=== PATIENT | female | born 1970 | race African-American/Black ===

== ENCOUNTER 2016-10-14 01:00 | Emergency (ER) | payer MEDICARE ==
[~2016-10-14] VITALS: Ht 149.9 cm; Wt 117.9 kg
[2016-10-14 01:30] VITALS: BP 190/92
[2016-10-14] MEDS ORDERED: CLOT15CR3 TP (02:28)
--- NOTE | 2016-10-14 02:28 | PHYS DOC ---
Past Medical History Past Medical History: Anemia, Bipolar, Depression, Hypertension, Schizophrenia Alcohol Use: Occasionally Drug Use: None Adult General Chief Complaint Chief Complaint: SKIN PROBLEM HPI HPI Patient is a 45 year old female who presents to the ER complaining of pain underneath both her breasts. Patient reports she's noticed a seeping discharge as well as a redness and rash underneath her breasts. Patient reports that she recently stopped wearing her bra because of myeloma was irritating her breasts. Patient denies any recent fevers shakes chills nausea vomiting diarrhea chest pain shortness of breath cough cold runny nose. Patient has a history of diabetes liver longer kidney problems. Her exam is consistent with a yeast dermatosis type rash underneath both breasts with some wild seeping and drainage noted. It is tender to palpation. A/P yeast dermatitis. Patient's clinically and hemodynamically stable. Patient was given a prescription for Lotrimin antifungal cream and will be discharged home in stable condition. Review of Systems Review of Systems Constitutional: Denies fever or chills [] Eyes: Denies change in visual acuity, redness, or eye pain [] HENT: Denies nasal congestion or sore throat [] Respiratory: Denies cough or shortness of breath [] Cardiovascular: No additional information not addressed in HPI [] GI: Denies abdominal pain, nausea, vomiting, bloody stools or diarrhea [] : Denies dysuria or hematuria [] Musculoskeletal: Denies back pain or joint pain [] Integument: Denies rash or skin lesions [] Neurologic: Denies headache, focal weakness or sensory changes [] Endocrine: Denies polyuria or polydipsia [] Physical Exam Physical Exam Constitutional: Well developed, well nourished, no acute distress, non-toxic appearance. [] HENT: Normocephalic, atraumatic, bilateral external ears normal, oropharynx moist, no oral exudates, nose normal. [] Eyes: PERRLA, EOMI, conjunctiva normal, no discharge. [] Neck: Normal range of motion, no tenderness, supple, no stridor. [] Cardiovascular:Heart rate regular rhythm, Lungs & Thorax: Bilateral breath sounds clear to auscultation [] Abdomen: Bowel sounds normal, soft, no tenderness, no masses, no pulsatile masses. [] Skin: Warm, dry, no erythema, no rash. [] Back: No tenderness, no CVA tenderness. [] Extremities: No tenderness, no cyanosis, no clubbing, ROM intact, no edema. [] Neurologic: Alert and oriented X 3, normal motor function, normal sensory function, no focal deficits noted. [] Psychologic: Affect normal, judgement normal, mood normal. [] Current Patient Data Vital Signs Vital Signs Date Time Temp Pulse Resp B/P Pulse Ox O2 Delivery O2 Flow Rate FiO2 10/14/16 01:30 82 190/92 96 Room Air 10/14/16 01:12 98.1 18 98.1 EKG EKG [] Radiology/Procedures Radiology/Procedures [] Course & Med Decision Making Course & Med Decision Making Pertinent Labs and Imaging studies reviewed. (See chart for details) [] Dragon Disclaimer Dragon Disclaimer This electronic medical record was generated, in whole or in part, using a voice recognition dictation system. Departure Departure Impression: Primary Impression: Yeast dermatitis Disposition: HOME, SELF-CARE Condition: STABLE Referrals: NO PCP (PCP) Patient Instructions: Yeast Infection of the Skin, [id number] Scripts Clotrimazole/Betamethasone Dip (Lotrisone Cream)15 Gm Cream..g.1 Drew TP BID #[id number] GM Prov:DION HARRINGTON MD 10/14/16 DION HARRINGTON MD Oct 14, 2016 02:28
== END 2016-10-14 02:50 | disposition home or self-care (01) ==
LOC: ER 01:00
DX: B37.2 Candidiasis of skin and nail (principal); F32.9 Major depressive disorder, single episode, unspecified; I10 Essential (primary) hypertension; F20.9 Schizophrenia, unspecified; C90.00 Multiple myeloma not having achieved remission
CPT/HCPCS: 99283

== ENCOUNTER 2016-10-19 00:14 | Emergency (ER) | payer MEDICARE ==
[~2016-10-19] VITALS: Ht 149.9 cm; Wt 136.1 kg
[~2016-10-19 00:14] MED LIST: CLOT15CR3 TP
--- NOTE | 2016-10-19 01:20 | ACF ---
Admission Forms Criteria PSYCHIATRIC DISORDERS Clinical Indications for Inpatient Care (Place 'X' for any and all applicable criteria): Ongoing inpatient care may be needed for ANY ONE of the following(1)(2)(3)(4)(6) (7)(8): [ ]I. Danger to self or others not manageable at lower level of care. [ ]II. Grave disability (eg, inability to perform self care necessary at lower level of care) [ ]III. Agitation or inappropriate behavior interfering with care for primary condition (eg, attempting to discontinue lines or drains prematurely, unable to cooperate with respiratory care) [X]IV. Severe disability or disorder indicated by ALL of the following: [X]a) Severe behavioral health disorder-related symptoms or condition indicated by ANY ONE of the following: [ ]i) Severe problem with cognition, memory, judgment, or impulse control [X]ii) Severe clinical manifestations (eg, hallucinations, delusions, other acute psychotic symptoms, naila, extreme agitation or anxiety) [X]b) Patient management at lower level of care is not feasible until acute intervention or modification is initiated. Extended stay beyond goal length of stay for the primary condition may be indicated when ANY ONE of the following is present: (1)(2)(3)(4): [ ]a) Patient is a danger to self or others and not manageable at lower level of care. [ ]b) Behavior crisis management, including physical or chemical restraints, is required and is not available at a lower level of care. [ ]c) Behavioral symptoms (e.g., agitation, somnolence, inappropriate behavior) are present, and are not manageable at a lower level of care. [ ]d) Patient cannot understand follow-up treatment and crisis plan. [ ]e) Provider and supports are not sufficiently available at lower level of care. [ ]f) Patient cannot participate (e.g., verify absence of plan for harm) and is in needed of monitoring. The original [facility] [email or web address] content created by [facility] [employer] has been revised. The portions of the content which have been revised are identified through the use of italic text or in bold, and [facility] has neither reviewed nor approved the modified material. All other unmodified content is copyright [facility]. Please see references footnoted in the original [facility] 2016 Admission Criteria Met?: Yes ES HERRERA Oct 19, 2016 01:19
[2016-10-19 01:38] LABS: BASO # 0.1 x10^3/uL (0.0-0.2); BASO % 1 % (0-3); EOS % 3 % (0-3); HEMATOCRIT 23.5 % (36.0-47.0); LYMPH # 1.7 x10^3/uL (1.0-4.8); LYMPH % 17 % (24-48); MEAN CORPUSCULAR HEMOGLOBIN 16 pg (25-35); MEAN CORPUSCULAR HGB CONC 28 g/dL (31-37); MEAN CORPUSCULAR VOLUME 56 fL (79-100); MONO % 6 % (0-9); NEUT % 73 % (31-73); PLATELET COUNT 255 x10^3/uL (140-400); RED BLOOD COUNT 4.23 x10^6/uL (3.50-5.40)
[2016-10-19] MEDS ORDERED: IPRATRPIUM/ALBUTEROL 0.5/2.5MG 3 ML NEBU. NEB ONE (02:00)
[2016-10-19 02:14] LABS: HEMOGLOBIN 6.6 g/dL (12.0-15.5)
[2016-10-19 02:23] LABS: CREATININE 0.8 mg/dL (0.6-1.0); GFR 94.3
[2016-10-19 02:23] LABS: BILIRUBIN,URINE NEGATIVE (NEG); GLUCOSE,URINE NEGATIVE (NEG); NITRITE,URINE NEGATIVE (NEG); PROTEIN,URINE 100 mg/dL (NEG-TRACE)
[2016-10-19 02:28] LABS: BARBITURATES NEG (NEG); BENZODIAZEPINES NEG (NEG); CANNABINOIDS NEG (NEG); COCAINE NEG (NEG); METHADONE NEG (NEG); OPIATES NEG (NEG); PHENCYCLIDINE NEG (NEG)
[2016-10-19 02:32] LABS: ETHANOL, URINE NEG (NEG)
[2016-10-19 02:44] LABS: BACTERIA,URINE 0 /HPF (0-FEW); RBC,URINE OCC /HPF (0-2)
[2016-10-19 02:45] LABS: SQUAMOUS EPITHELIAL CELL,UR FEW /LPF
--- NOTE | 2016-10-19 02:53 | PHYS DOC ---
Past Medical History Past Medical History: Anemia, Bipolar, Depression, Hypertension, Schizophrenia Alcohol Use: Occasionally Drug Use: None Adult General Chief Complaint Chief Complaint: PSYCH EVALUATION HPI HPI Patient is a 45 year old female who presents to the emergency department with multiple complaints. Patient's primary complaint is hearing voices. Patient states she has history of schizophrenia and has not been on her medications for the past 2 months. The patient states that she is currently living at a motel states that she does not feel that she can take care of herself any longer in her current state. Patient also admits to history of anemia, hypertension, depression, and bipolar disorder. Patient notes that she has had mild shortness of breath with ambulation. Patient states that she is not having any symptoms while at rest. The patient denies any suicidal or homicidal ideation. Patient is not in any pain currently. The patient is requesting help and a psychiatric evaluation as she again states that she is unable to take care of herself in her current state. Review of Systems Review of Systems Constitutional: Denies fever or chills [] Eyes: Denies change in visual acuity, redness, or eye pain [] HENT: Denies nasal congestion or sore throat [] Respiratory: Shortness of breath with exertion [] Cardiovascular: Edema, denies chest pain [] GI: Denies abdominal pain, nausea, vomiting, bloody stools or diarrhea [] : Denies dysuria or hematuria [] Musculoskeletal: Denies back pain or joint pain [] Integument: Denies rash or skin lesions [] Neurologic: Denies headache, focal weakness or sensory changes [] Current Medications Current Medications Current Medications Medications (Trade) Dose Ordered Sig/Mary Start Time Stop Time Status Last Admin Dose Admin Albuterol/ Ipratropium (Duoneb) 3 ml 1X ONCE 10/19/16 02:00 10/19/16 02:01 DC 10/19/16 01:53 3 ML Hydralazine HCl (Apresoline) 10 mg 1X ONCE 10/19/16 03:30 10/19/16 03:31 DC 10/19/16 03:32 10 MG Ibuprofen (Motrin) 600 mg STK-MED ONCE 10/19/16 04:33 10/19/16 04:34 DC Losartan Potassium (Cozaar) 50 mg 1X ONCE 10/19/16 03:30 10/19/16 03:31 DC 10/19/16 03:29 50 MG Potassium Chloride (Klor-Con) 40 meq 1X ONCE 10/19/16 03:30 10/19/16 03:31 DC 10/19/16 03:28 40 MEQ Allergies Allergies Allergies Coded Allergies Type Severity Reaction Last Updated Verified No Known Drug Allergies 10/19/16 No Physical Exam Physical Exam Constitutional: Alert, afebrile, morbidly obese, no acute distress. [] HENT: Normocephalic, atraumatic, bilateral external ears normal, oropharynx moist, no oral exudates, nose normal. [] Eyes: PERRLA, EOMI, conjunctiva normal, no discharge. [] Neck: Normal range of motion, no tenderness, supple, no stridor. [] Cardiovascular:Heart rate regular rhythm, no murmur [] Lungs & Thorax: Nonobstructive air movement bilaterally, mild expiratory wheezes , no rales [] Abdomen: Bowel sounds normal, soft, no tenderness, no masses, no pulsatile masses. [] Skin: Warm, dry, no erythema, no rash. [] Back: No tenderness, no CVA tenderness. [] Extremities: No tenderness, no cyanosis, no clubbing, ROM intact, 1+ pitting edema in the bilateral lower extremities. [] Neurologic: Alert and oriented X 3, normal motor function, normal sensory function, no focal deficits noted. [] Current Patient Data Vital Signs Vital Signs Date Time Temp Pulse Resp B/P Pulse Ox O2 Delivery O2 Flow Rate FiO2 10/19/16 04:57 98.5 80 22 179/88 98.5 10/19/16 03:44 98 Room Air Lab Values Laboratory Tests Test 10/19/16 01:30 10/19/16 01:34 White Blood Count 10.0x10^3/uL (4.0-11.0) Red Blood Count 4.23x10^6/uL (3.50-5.40) Hemoglobin 6.6g/dL (12.0-15.5) *L Hematocrit 23.5% (36.0-47.0) L Mean Corpuscular Volume 56fL (79-100) L Mean Corpuscular Hemoglobin 16pg (25-35) L Mean Corpuscular Hemoglobin Concent 28g/dL (31-37) L Red Cell Distribution Width 21.0% (11.5-14.5) H Platelet Count 255x10^3/uL (140-400) Neutrophils (%) (Auto) 73% (31-73) Lymphocytes (%) (Auto) 17% (24-48) L Monocytes (%) (Auto) 6% (0-9) Eosinophils (%) (Auto) 3% (0-3) Basophils (%) (Auto) 1% (0-3) Neutrophils # (Auto) 7.3x10^3uL (1.8-7.7) Lymphocytes # (Auto) 1.7x10^3/uL (1.0-4.8) Monocytes # (Auto) 0.6x10^3/uL (0.0-1.1) Eosinophils # (Auto) 0.3x10^3/uL (0.0-0.7) Basophils # (Auto) 0.1x10^3/uL (0.0-0.2) Platelet Estimate Pending Sodium Level 145mmol/L (136-145) Potassium Level 3.0mmol/L (3.5-5.1) L Chloride Level 109mmol/L (98-107) H Carbon Dioxide Level 29mmol/L (21-32) Anion Gap 7 (6-14) Blood Urea Nitrogen 4mg/dL (7-20) L Creatinine 0.8mg/dL (0.6-1.0) Estimated GFR (Cockcroft-Gault) 94.3 Glucose Level 101mg/dL (70-99) H Calcium Level 8.0mg/dL (8.5-10.1) L Urine Collection Type Unknown Urine Color Yellow Urine Clarity Clear Urine pH 6.0 Urine Specific [place] 1.025 Urine Protein 100mg/dL (NEG-TRACE) Urine Glucose (UA) Negativemg/dL (NEG) Urine Ketones (Stick) Negativemg/dL (NEG) Urine Blood Negative (NEG) Urine Nitrite Negative (NEG) Urine Bilirubin Negative (NEG) Urine Urobilinogen Dipstick 1.0mg/dL (0.2 mg/dL) Urine Leukocyte Esterase Negative (NEG) Urine RBC Occ/HPF (0-2) Urine WBC 1-4/HPF (0-4) Urine Squamous Epithelial Cells Few/LPF Urine Bacteria 0/HPF (0-FEW) Urine Hyaline Casts Moderate/HPF Urine Mucus Mod/LPF Urine Opiates Screen Neg (NEG) Urine Methadone Screen Neg (NEG) Urine Barbiturates Neg (NEG) Urine Phencyclidine Screen Neg (NEG) Urine Amphetamine/Methamphetamine Neg (NEG) Urine Benzodiazepines Screen Neg (NEG) Urine Cocaine Screen Neg (NEG) Urine Cannabinoids Screen Neg (NEG) Urine Ethyl Alcohol Neg (NEG) Laboratory Tests 10/19/16 01:30 Laboratory Tests 10/19/16 01:30 EKG EKG Rhythm strip interpretation: Heart rate 74, sinus rhythm, normal intervals, no ectopy [] Radiology/Procedures Radiology/Procedures Not performed [] Course & Med Decision Making Course & Med Decision Making Pertinent Labs and Imaging studies reviewed. (See chart for details) Patient's hemoglobin was found to be 6.6. Patient appears to have a baseline hemoglobin above 7. This may be contributing to the patient's shortness of breath symptoms. Patient was also treated with albuterol which helped with the patient's wheezing. Patient given oral potassium for replacement as her potassium levels were 3.0. Patient also found to have elevated blood pressure that was treated with a combination of hydralazine and losartan as patient is currently not on any medications and had previously been on Benicar. The patient is otherwise in no acute distress at this time and is medically stable pending reinitiation of outpatient medications. The patient was evaluated by Kirstin of PAT team. After speaking with the patient she was able to contact and get confirmation that patient could be sent to [facility] for further evaluation. The patient was transfused 1 unit of packed red blood cells prior to discharge. Dragon Disclaimer Dragon Disclaimer This electronic medical record was generated, in whole or in part, using a voice recognition dictation system. Departure Departure Impression: Primary Impression: Schizophrenia Additional Impressions: Iron deficiency anemia Hypokalemia Asthma Essential hypertension Disposition: 65 XFER TO PSYCH HOSP/UNIT Condition: STABLE Referrals: NO PCP (PCP) Patient Instructions: Asthma, Adult, Hypertension, Hypokalemia, Iron Deficiency Anemia, Schizophrenia Additional Instructions: You will be transferred to [facility] for further psychiatric evaluation and treatment upon discharge from the emergency department. Return to the emergency department for any worsening symptoms. Scripts Losartan Potassium 50 Mg [id number] Mg PO DAILY #30 TAB Prov:ROD NASH MD 10/19/16 Albuterol Sulfate (Proair Hfa Inhaler)8.5 Gm Hfa.aer.ad2 Puff INH Q4-6HRS PRN SHORTNESS OF BREATH #1 INHALER Ref 0 Prov:ROD NASH MD 10/19/16 Problem Qualifiers Primary Impression: Schizophrenia Schizophrenia type: unspecified Qualified Code: F20.9 - Schizophrenia, unspecified Additional Impressions: Iron deficiency anemia Iron deficiency anemia type: unspecified iron deficiency Qualified Code: D50.9 - Iron deficiency anemia, unspecified Asthma Asthma severity: mild persistent Asthma complication type: uncomplicated Qualified Code: J45.30 - Mild persistent asthma, uncomplicated ROD NASH MD Oct 19, 2016 02:53
[2016-10-19] MEDS ORDERED: POTASSIUM CHLORIDE 20 MEQ TABLET.ER. PO ONE (03:30)
[2016-10-19] MEDS ORDERED: hydrALAZINE 20 MG/ML VIAL. IVP ONE (03:30)
[2016-10-19] MEDS ORDERED: LOSARTAN POTASSIUM 50 MG TABLET. PO ONE (03:30)
[2016-10-19] MEDS ORDERED: PROAIR HFA8.5 GM INH (04:28)
[2016-10-19] MEDS ORDERED: LOSA50TA6 PO (04:28)
[2016-10-19] MEDS ORDERED: IBUPROFEN 600 MG TABLET. PO ONE ×2 (04:33→05:00)
[2016-10-19 04:41] VITALS: BP 179/90
[2016-10-19 04:57] VITALS: BP 179/88
[2016-10-19 05:50] VITALS: BP 184/106
[2016-10-19 06:11] VITALS: BP 186/108
[2016-10-19 07:33] LABS: PLT ESTIMATE ADEQUATE (ADEQUATE)
[2016-10-19 07:34] LABS: ANISOCYTOSIS PRESENT; HYPOCHROMIA PRESENT; MICROCYTOSIS PRESENT
== END 2016-10-19 06:33 ==
LOC: ER 00:14
DX: F20.9 Schizophrenia, unspecified (principal); J45.30 Mild persistent asthma, uncomplicated; D50.9 Iron deficiency anemia, unspecified; E87.6 Hypokalemia; I10 Essential (primary) hypertension; F31.9 Bipolar disorder, unspecified
CPT/HCPCS: 36415; 80048; 80305; 81001; 85007; 85027; 86850; 86900; 86901; 86920; 94250; 94640; 96374; 99285; J0360; J7620; P9016; G0481

== ENCOUNTER 2016-10-22 09:57 | Inpatient (IN) | payer MEDICARE ==
[~2016-10-22] VITALS: Ht 149.9 cm; Wt 140.4 kg
[~2016-10-22 09:57] MED LIST changes: +LOSA50TA6 PO; +PROAIR HFA8.5 GM INH
--- NOTE | 2016-10-22 10:37 | PHYS DOC ---
Past Medical History Past Medical History: Anemia, Bipolar, Depression, Hypertension, Schizophrenia Past Surgical History: Alcohol Use: Occasionally Drug Use: None Adult General Chief Complaint Chief Complaint: MULTIPLE COMPLAINTS HPI HPI Patient is a 45 year old female presents emergency department for the third time in the last 2 weeks. Patient states that she has had shortness of air difficulty breathing. She was seen here approximately on October 19 for shortness of air and was provided with an inhaler in which she states she was unable to fill. She also states that she has a yeast infection and headache bilateral breast in which she was also unable to get the prescription filled in which she was seen on October 14. Patient also states that she has had abdominal pain and discomfort with distended abdomen. She states her last normal bowel movement was today. She denies any nausea or vomiting. Patient denies any urinary frequency urgency or pain with urination. Patient states that she lives in a motel and is unable to obtain her medications. She states that her mother has all of her money and has not provided her with the money to be able to get her prescriptions filled. Review of Systems Review of Systems Constitutional: Denies fever or chills [] Eyes: Denies change in visual acuity, redness, or eye pain [] HENT: Denies nasal congestion or sore throat [] Respiratory: Denies cough C/o shortness of breath [] Cardiovascular: No additional information not addressed in HPI [] GI: abdominal pain, denies nausea, vomiting, bloody stools or diarrhea [] : Denies dysuria or hematuria [] Musculoskeletal: Denies back pain or joint pain [] Integument: rash under bilateral breast denies skin lesions [] Neurologic: Denies headache, focal weakness or sensory changes [] Endocrine: Denies polyuria or polydipsia [] Current Medications Current Medications Current Medications Medications (Trade) Dose Ordered Sig/Mary Start Time Stop Time Status Last Admin Dose Admin Albuterol Sulfate (Ventolin Neb Soln) 2.5 mg 1X ONCE 10/22/16 10:45 10/22/16 10:46 DC 10/22/16 10:50 2.5 MG Clonidine HCl (Catapres) 0.2 mg 1X ONCE 10/22/16 10:45 10/22/16 10:46 DC 10/22/16 10:55 0.2 MG Allergies Allergies Allergies Coded Allergies Type Severity Reaction Last Updated Verified No Known Drug Allergies 10/19/16 No Physical Exam Physical Exam Constitutional: Well developed, well nourished, no acute distress, non-toxic appearance. [] HENT: Normocephalic, atraumatic, bilateral external ears normal, oropharynx moist, no oral exudates, nose normal. [] Eyes: PERRLA, EOMI, conjunctiva normal, no discharge. [] Neck: Normal range of motion, no tenderness, supple, no stridor. [] Cardiovascular:Heart rate regular rhythm, no murmur [] Lungs & Thorax: Bilateral breath sounds clear to auscultation with patient unable to take a deep breath. Abdomen: Bowel sounds hypoactive, soft, right upper quadrant and left lower abdominal tenderness, no masses, no pulsatile masses. Patients abdomen is round and distended. Skin: Warm, dry, no erythema, no rash. Patient with yeast type rash with drainage noted under bilateral breasts. It was noted to have a foul odor from the areas. Back: No tenderness Extremities: No tenderness, no cyanosis, no clubbing, ROM intact, no edema. [] Neurologic: Alert and oriented X 3, normal motor function, normal sensory function, no focal deficits noted. [] Psychologic: Affect normal, judgement normal, mood normal. [] Current Patient Data Vital Signs Vital Signs Date Time Temp Pulse Resp B/P Pulse Ox O2 Delivery O2 Flow Rate FiO2 10/22/16 12:30 87 188/91 10/22/16 12:00 26 94 Nasal Cannula 2 10/22/16 10:03 97.9 97.9 Lab Values Laboratory Tests Test 10/22/16 10:40 10/22/16 11:55 White Blood Count 12.2x10^3/uL (4.0-11.0) H Red Blood Count 4.58x10^6/uL (3.50-5.40) Hemoglobin 8.0g/dL (12.0-15.5) L Hematocrit 26.1% (36.0-47.0) L Mean Corpuscular Volume 57fL (79-100) L Mean Corpuscular Hemoglobin 17pg (25-35) L Mean Corpuscular Hemoglobin Concent 31g/dL (31-37) Red Cell Distribution Width 22.9% (11.5-14.5) H Platelet Count 259x10^3/uL (140-400) Neutrophils (%) (Auto) 81% (31-73) H Lymphocytes (%) (Auto) 11% (24-48) L Monocytes (%) (Auto) 5% (0-9) Eosinophils (%) (Auto) 2% (0-3) Basophils (%) (Auto) 1% (0-3) Neutrophils # (Auto) 9.9x10^3uL (1.8-7.7) H Lymphocytes # (Auto) 1.3x10^3/uL (1.0-4.8) Monocytes # (Auto) 0.6x10^3/uL (0.0-1.1) Eosinophils # (Auto) 0.2x10^3/uL (0.0-0.7) Basophils # (Auto) 0.1x10^3/uL (0.0-0.2) Sodium Level 144mmol/L (136-145) Potassium Level 3.0mmol/L (3.5-5.1) L Chloride Level 107mmol/L (98-107) Carbon Dioxide Level 28mmol/L (21-32) Anion Gap 9 (6-14) Blood Urea Nitrogen 6mg/dL (7-20) L Creatinine 0.9mg/dL (0.6-1.0) Estimated GFR (Cockcroft-Gault) 82.3 BUN/Creatinine Ratio 7 (6-20) Glucose Level 119mg/dL (70-99) H Calcium Level 7.9mg/dL (8.5-10.1) L Total Bilirubin 1.1mg/dL (0.2-1.0) H Aspartate Amino Transferase (AST) 47U/L (15-37) H Alanine Aminotransferase (ALT) 32U/L (14-59) Alkaline Phosphatase 155U/L (46-116) H GU-Nqz-T-Type Natriuretic Peptide 1619pg/mL (0-124) H Total Protein 7.2g/dL (6.4-8.2) Albumin 2.8g/dL (3.4-5.0) L Albumin/Globulin Ratio 0.6 (1.0-1.7) L Amylase Level 68U/L (25-115) Lipase 126U/L (73-393) Urine Collection Type U cath Urine Color Yellow Urine Clarity Clear Urine pH 6.5 Urine Specific [place] 1.015 Urine Protein >=300mg/dL (NEG-TRACE) Urine Glucose (UA) Negativemg/dL (NEG) Urine Ketones (Stick) Negativemg/dL (NEG) Urine Blood Trace (NEG) Urine Nitrite Negative (NEG) Urine Bilirubin Negative (NEG) Urine Urobilinogen Dipstick 1.0mg/dL (0.2 mg/dL) Urine Leukocyte Esterase Negative (NEG) Urine RBC 0/HPF (0-2) Urine WBC 1-4/HPF (0-4) Urine Transitional Epithelial Cells Occ/LPF Urine Amorphous Sediment Present/HPF Urine Bacteria 0/HPF (0-FEW) Urine Test Negative (NEG) Laboratory Tests 10/22/16 10:40 Laboratory Tests 10/22/16 10:40 EKG EKG EKG completed with a heart rate of 91 sinus rhythm noted no STEMI noted per Dr. Quick. [] Radiology/Procedures Radiology/Procedures [] Course & Med Decision Making Course & Med Decision Making Pertinent Labs and Imaging studies reviewed. (See chart for details) Patient O2 sat was in the upper 80s upon arrival. She was placed on oxygen which brought her oxygenation level up into the upper 90s. Patient was provided with an albuterol treatment which seemed to have helped providing her with O2 sat of 100% with oxygen. Patient CT scan was negative for any abnormalities chest x-ray shows infiltrate versus pleural effusion. Patient will be admitted into the hospitalist spoke with Dr. Joseph in regards to admission. Patient will be provided with potassium supplement here in the emergency department. [] Dragon Disclaimer Dragon Disclaimer This electronic medical record was generated, in whole or in part, using a voice recognition dictation system. Departure Departure Impression: Primary Impression: Hypokalemia Additional Impressions: Essential hypertension Abdominal pain Dyspnea Marce infection Disposition: 09 ADMITTED INPATIENT Admitting Physician: Joshua Joseph Referrals: SHAHANA ARINEY MD (PCP) Problem Qualifiers LUIS RICHEY DIRECTOR OF CORPORATE RESPONSIBILITY Oct 22, 2016 10:37
[2016-10-22] MEDS ORDERED: CLONIDINE HCL 0.1 MG TABLET PO ONE (10:45)
[2016-10-22] MEDS ORDERED: ALBUTEROL SULFATE 2.5 MG/3 ML NEBU. NEB ONE (10:45)
[2016-10-22 11:02] LABS: BASO # 0.1 x10^3/uL (0.0-0.2); BASO % 1 % (0-3); EOS % 2 % (0-3); HEMATOCRIT 26.1 % (36.0-47.0); LYMPH # 1.3 x10^3/uL (1.0-4.8); LYMPH % 11 % (24-48); MEAN CORPUSCULAR HEMOGLOBIN 17 pg (25-35); MEAN CORPUSCULAR HGB CONC 31 g/dL (31-37); MEAN CORPUSCULAR VOLUME 57 fL (79-100); MONO % 5 % (0-9); NEUT % 81 % (31-73); PLATELET COUNT 259 x10^3/uL (140-400); RED BLOOD COUNT 4.58 x10^6/uL (3.50-5.40); RED CELL DISTRIBUTION WIDTH 22.9 % (11.5-14.5); WHITE BLOOD COUNT 12.2 x10^3/uL (4.0-11.0)
--- NOTE | 2016-10-22 11:12 | RAD ---
Portable chest, 10/22/2016: History: Shortness of breath Comparison is made to a study from 01/17/2015. The heart is enlarged. The pulmonary vascularity appears to be congested. The lung bases are underpenetrated due to the patient's size. There is a density in the right lateral costophrenic angle suggesting the presence of pleural fluid. IMPRESSION: 1. Cardiomegaly with vascular congestion. 2. Possible small right pleural effusion. Follow-up PA and lateral chest radiographs are suggested for further evaluation.
[2016-10-22 11:14] LABS: ALBUMIN 2.8 g/dL (3.4-5.0); ALBUMIN/GLOBULIN RATIO 0.6 (1.0-1.7); CALCIUM 7.9 mg/dL (8.5-10.1); CREATININE 0.9 mg/dL (0.6-1.0); GFR 82.3; TOTAL BILIRUBIN 1.1 mg/dL (0.2-1.0); TOTAL PROTEIN 7.2 g/dL (6.4-8.2)
[2016-10-22 12:11] LABS: BILIRUBIN,URINE NEGATIVE (NEG); GLUCOSE,URINE NEGATIVE (NEG); NITRITE,URINE NEGATIVE (NEG); PH,URINE 6.5; PROTEIN,URINE >=300 mg/dL (NEG-TRACE)
[2016-10-22 12:15] LABS: NEG OBC UR NEG; POS OBC UR POS
[2016-10-22 12:18] LABS: RBC,URINE 0 /HPF (0-2)
[2016-10-22 12:19] LABS: BACTERIA,URINE 0 /HPF (0-FEW)
--- NOTE | 2016-10-22 13:12 | RAD ---
Indication abdominal pain. Axial images through the abdomen and pelvis were obtained. Study is limited. No IV or gastrointestinal contrast was administered. There is soft tissue swelling of the visualized abdominal wall and visualized portions of both breasts. This may reflect a systemic process such as anasarca. A component of inflammation is not excluded. There is a small right pleural effusion. Some volume loss is seen at the right lung base ventrally. This may reflect atelectasis or scar. A focus of pneumonia is not entirely excluded. The liver and spleen appear unremarkable. The gallbladder is largely contracted but grossly normal. No pancreatic abnormality is seen. There are no adrenal or renal anomalies seen. An acute finding in the abdomen is not apparent. A mass inflammatory process or acute finding in the abdomen is not seen. In the pelvis no focal mass or inflammatory process is seen. IMPRESSION: Diffuse soft tissue swelling. Clinical correlation advised. No focal or acute process seen in the abdomen or pelvis. Small right pleural effusion. Volume loss at the right lung base ventrally may reflect atelectasis or scar. A pneumonic focus is not entirely excluded PQRS Compliance Statement: One or more of the following individualized dose reduction techniques were utilized for this examination: 1. Automated exposure control 2. Adjustment of the mA and/or kV according to patient size 3. Use of iterative reconstruction technique
[2016-10-22] MEDS ORDERED: POTASSIUM CHLORIDE 20 MEQ TABLET.ER. PO ONE ×2 (14:00→17:00)
--- NOTE | 2016-10-22 14:10 | EKG ---
[facility] [address] [place] [address] Test Date: 2016-10-22 Test Time: 10:27:21 Pat Name: BECKI WHEELER Department: Room: Gender: F [employer]: : 1970 Requested By: STAFF NON Order Number: [id number] Reading MD: Mohini Garcia Measurements Intervals [place] Rate: 91 P: 30 FL: 162 QRS: -46 QRSD: 86 T: 78 QT: 392 QTc: 484 Interpretive Statements SINUS RHYTHM NORMAL ECG RI6.01 No previous ECG available for comparison Electronically Signed On 10-26-2016 15:14:15 CDT by Mohini Garcia
[2016-10-22] MEDS ORDERED: ONDANSETRON PF 4 MG/2 ML VIAL. IV PRN ×2 (14:45)
[2016-10-22] MEDS ORDERED: ACETAMINOPHEN 325 MG TABLET. PO PRN ×2 (14:45)
[2016-10-22] MEDS ORDERED: HALOPERIDOL LACTATE 5 MG/ML VIAL. IVP PRN (14:45)
[2016-10-22] MEDS ORDERED: MORPHINE SULFATE 2 MG/ML DISP.SYRIN. IV PRN (14:45)
[2016-10-22] MEDS ORDERED: hydrALAZINE 20 MG/ML VIAL. IVP PRN (14:45)
[2016-10-22] MEDS ORDERED: SULFUR HEXAFLUORIDE MICROSPHR 25 MG VIAL. IVP ONE ×2 (14:47→15:30)
--- NOTE | 2016-10-22 14:57 | PDOC1 ---
History and Physical Date of Admission Date of Admission 10/22/16 Identification/Chief Complaint Chief Complaint sob Problems: Source Source: Chart review, Patient History of Present Illness History of Present Illness HPI HPI Patient is a 45 year old female presents emergency department for dyspnea. Seems she has been here for the third time in the last 2 weeks. pt is a poor historian, she said she has a PCP, and insurance,but wont fu with PCP nor fill her meds, saying she has finacial problem. not taking any meds currently. h/o HTN and bipolar. She has been feeling dyspnea for 2 weeks, especiall exertional with walking, mild cough, no fever, + chills. severe weight gain with bl leg edema. She also has bl breast fungus infection, told ER [employer]ODUCT [employer] REP that cannot get meds, but told me she DOESNOT want topical meds on it. CONstipation and diarrhea for 2 weeks, watery. feels abd tightness, neg ABD CT in ER. Past Medical History Cardiovascular: HTN Past Surgical History Past Surgical History: Family History Family History: No Significant Social History Smoke: <1 pack per day ALCOHOL: social Drugs: None Current Problem List Problem List Problems Medical Problems: (1) Abdominal pain Status: Acute (2) Marce infection Status: Acute (3) Dyspnea Status: Acute (4) Essential hypertension Status: Acute (5) Hypokalemia Status: Acute Current Medications Current Medications Current Medications Medications (Trade) Dose Ordered Sig/Mary Start Time Stop Time Status Last Admin Dose Admin Acetaminophen (Tylenol) 650 mg PRN Q6HRS PRN 10/22/16 14:45 10/22/16 14:45 DC Acetaminophen/ Hydrocodone Bitart (Lortab 5/325) 1 tab PRN Q4HRS PRN 10/22/16 14:45 Albuterol Sulfate (Ventolin Neb Soln) 2.5 mg 1X ONCE 10/22/16 10:45 10/22/16 10:46 DC 10/22/16 10:50 2.5 MG Clonidine HCl (Catapres) 0.2 mg 1X ONCE 10/22/16 10:45 10/22/16 10:46 DC 10/22/16 10:55 0.2 MG Furosemide (Lasix) 40 mg DAILY 10/22/16 15:00 UNV Heparin Sodium (Porcine) 5,000 unit Q8HRS 10/22/16 22:00 Hydralazine HCl (Apresoline) 10 mg PRN Q4HRS PRN 10/22/16 14:45 UNV Losartan Potassium (Cozaar) 100 mg DAILY 10/22/16 15:00 UNV Morphine Sulfate 1 mg PRN Q1HR PRN 10/22/16 14:45 Nystatin (Nystop) 1 kade BID 10/22/16 21:00 UNV Ondansetron HCl (Zofran) 4 mg PRN Q6HRS PRN 10/22/16 14:45 UNV Potassium Chloride (Klor-Con) 40 meq 1X ONCE 10/22/16 14:00 10/22/16 14:02 DC 10/22/16 14:08 40 MEQ Allergies Allergies Allergies Coded Allergies Type Severity Reaction Last Updated Verified No Known Drug Allergies 10/19/16 No ROS Review of System CONSTITUTIONAL: No fever or chills EYES: No recent changes SKIN: No rash or itching CARDIOVASCULAR: No chest pain, syncope, palpitations, or edema RESPIRATORY: No SOB or cough GASTROINTESTINAL: No nausea, vomiting or abdominal pain NEUROLOGICAL: No headaches or weakness ENDOCRINE: No cold or heat intolerance GENITOURINARY: No urgency or frequency of urination MUSCULOSKELETAL: No back pain or joint pain LYMPHATICS: No enlarged lymph nodes PSYCHIATRIC: No anxiety or depression Physical Exam Physical Exam GEN.: No apparent distress. Alert and oriented. HEENT: Head is normocephalic, atraumatic NECK: Supple. LUNGS: bl diminished bs. HEART: RRR, S1, S2 present. Peripheral pulses intact ABDOMEN: Soft, nontender. Positive bowel sounds. mild distended abd, tight. EXTREMITIES: Without any cyanosis. anasarca. NEUROLOGIC: Normal speech, normal tone PSYCHIATRIC: Normal affect, normal mood. SKIN: No ulcerations Vitals Vitals Vital Signs Date Time Temp Pulse Resp B/P Pulse Ox O2 Delivery O2 Flow Rate FiO2 10/22/16 12:30 87 188/91 10/22/16 12:00 26 94 Nasal Cannula 2 10/22/16 10:03 97.9 97.9 Labs Labs Laboratory Tests Test 10/22/16 10:40 10/22/16 11:55 White Blood Count 12.2x10^3/uL (4.0-11.0) Red Blood Count 4.58x10^6/uL (3.50-5.40) Hemoglobin 8.0g/dL (12.0-15.5) Hematocrit 26.1% (36.0-47.0) Mean Corpuscular Volume 57fL (79-100) Mean Corpuscular Hemoglobin 17pg (25-35) Mean Corpuscular Hemoglobin Concent 31g/dL (31-37) Red Cell Distribution Width 22.9% (11.5-14.5) Platelet Count 259x10^3/uL (140-400) Neutrophils (%) (Auto) 81% (31-73) Lymphocytes (%) (Auto) 11% (24-48) Monocytes (%) (Auto) 5% (0-9) Eosinophils (%) (Auto) 2% (0-3) Basophils (%) (Auto) 1% (0-3) Neutrophils # (Auto) 9.9x10^3uL (1.8-7.7) Lymphocytes # (Auto) 1.3x10^3/uL (1.0-4.8) Monocytes # (Auto) 0.6x10^3/uL (0.0-1.1) Eosinophils # (Auto) 0.2x10^3/uL (0.0-0.7) Basophils # (Auto) 0.1x10^3/uL (0.0-0.2) Sodium Level 144mmol/L (136-145) Potassium Level 3.0mmol/L (3.5-5.1) Chloride Level 107mmol/L (98-107) Carbon Dioxide Level 28mmol/L (21-32) Anion Gap 9 (6-14) Blood Urea Nitrogen 6mg/dL (7-20) Creatinine 0.9mg/dL (0.6-1.0) Estimated GFR (Cockcroft-Gault) 82.3 BUN/Creatinine Ratio 7 (6-20) Glucose Level 119mg/dL (70-99) Calcium Level 7.9mg/dL (8.5-10.1) Total Bilirubin 1.1mg/dL (0.2-1.0) Aspartate Amino Transf (AST/SGOT) 47U/L (15-37) Alanine Aminotransferase (ALT/SGPT) 32U/L (14-59) Alkaline Phosphatase 155U/L (46-116) DN-Drz-V-Type Natriuretic Peptide 1619pg/mL (0-124) Total Protein 7.2g/dL (6.4-8.2) Albumin 2.8g/dL (3.4-5.0) Albumin/Globulin Ratio 0.6 (1.0-1.7) Amylase Level 68U/L (25-115) Lipase 126U/L (73-393) Urine Collection Type U cath Urine Color Yellow Urine Clarity Clear Urine pH 6.5 Urine Specific [place] 1.015 Urine Protein >=300mg/dL (NEG-TRACE) Urine Glucose (UA) Negativemg/dL (NEG) Urine Ketones (Stick) Negativemg/dL (NEG) Urine Blood Trace (NEG) Urine Nitrite Negative (NEG) Urine Bilirubin Negative (NEG) Urine Urobilinogen Dipstick 1.0mg/dL (0.2 mg/dL) Urine Leukocyte Esterase Negative (NEG) Urine RBC 0/HPF (0-2) Urine WBC 1-4/HPF (0-4) Urine Transitional Epithelial Cells Occ/LPF Urine Amorphous Sediment Present/HPF Urine Bacteria 0/HPF (0-FEW) Urine Test Negative (NEG) Laboratory Tests Test 10/22/16 10:40 10/22/16 11:55 White Blood Count 12.2x10^3/uL (4.0-11.0) Red Blood Count 4.58x10^6/uL (3.50-5.40) Hemoglobin 8.0g/dL (12.0-15.5) Hematocrit 26.1% (36.0-47.0) Mean Corpuscular Volume 57fL (79-100) Mean Corpuscular Hemoglobin 17pg (25-35) Mean Corpuscular Hemoglobin Concent 31g/dL (31-37) Red Cell Distribution Width 22.9% (11.5-14.5) Platelet Count 259x10^3/uL (140-400) Neutrophils (%) (Auto) 81% (31-73) Lymphocytes (%) (Auto) 11% (24-48) Monocytes (%) (Auto) 5% (0-9) Eosinophils (%) (Auto) 2% (0-3) Basophils (%) (Auto) 1% (0-3) Neutrophils # (Auto) 9.9x10^3uL (1.8-7.7) Lymphocytes # (Auto) 1.3x10^3/uL (1.0-4.8) Monocytes # (Auto) 0.6x10^3/uL (0.0-1.1) Eosinophils # (Auto) 0.2x10^3/uL (0.0-0.7) Basophils # (Auto) 0.1x10^3/uL (0.0-0.2) Sodium Level 144mmol/L (136-145) Potassium Level 3.0mmol/L (3.5-5.1) Chloride Level 107mmol/L (98-107) Carbon Dioxide Level 28mmol/L (21-32) Anion Gap 9 (6-14) Blood Urea Nitrogen 6mg/dL (7-20) Creatinine 0.9mg/dL (0.6-1.0) Estimated GFR (Cockcroft-Gault) 82.3 BUN/Creatinine Ratio 7 (6-20) Glucose Level 119mg/dL (70-99) Calcium Level 7.9mg/dL (8.5-10.1) Total Bilirubin 1.1mg/dL (0.2-1.0) Aspartate Amino Transf (AST/SGOT) 47U/L (15-37) Alanine Aminotransferase (ALT/SGPT) 32U/L (14-59) Alkaline Phosphatase 155U/L (46-116) SV-Cfn-U-Type Natriuretic Peptide 1619pg/mL (0-124) Total Protein 7.2g/dL (6.4-8.2) Albumin 2.8g/dL (3.4-5.0) Albumin/Globulin Ratio 0.6 (1.0-1.7) Amylase Level 68U/L (25-115) Lipase 126U/L (73-393) Urine Collection Type U cath Urine Color Yellow Urine Clarity Clear Urine pH 6.5 Urine Specific [place] 1.015 Urine Protein >=300mg/dL (NEG-TRACE) Urine Glucose (UA) Negativemg/dL (NEG) Urine Ketones (Stick) Negativemg/dL (NEG) Urine Blood Trace (NEG) Urine Nitrite Negative (NEG) Urine Bilirubin Negative (NEG) Urine Urobilinogen Dipstick 1.0mg/dL (0.2 mg/dL) Urine Leukocyte Esterase Negative (NEG) Urine RBC 0/HPF (0-2) Urine WBC 1-4/HPF (0-4) Urine Transitional Epithelial Cells Occ/LPF Urine Amorphous Sediment Present/HPF Urine Bacteria 0/HPF (0-FEW) Urine Test Negative (NEG) VTE Prophylaxis Ordered VTE Prophylaxis Devices: Yes VTE Pharmacological Prophylaxi: Yes Assessment/Plan Assessment/Plan 1. Dyspnea, with fluid overloaded 2. anasarca 3. HTN urgency 4. need to rule out CHF 5. non compliance 6. bipolar disorder/schizophrenia, not following psych or take meds 7. chronic anemia 8,. morbid obesity 9. hypokalemia 10. hypomagnesemia plan: 1. card, GI consult 2. iv lasix bid, replete K, mag 3. weight dialy, in and out 4. check lipid panel, tsh, Echo 5. increase losartan to 100mg daily, hydralazine prn 6. albuterol prn 7. check stool cx, cdiff iron panel, ferritin, fa, vitb12, FOBT dvt ppx ptot SW for psych help and insurance problem if needed AQUILES WILKERSON MD Oct 22, 2016 14:57
[2016-10-22] MEDS ORDERED: ALBUTEROL SULFATE 2.5 MG/3 ML NEBU. NEB PRN (15:00)
[2016-10-22] MEDS ORDERED: FUROSEMIDE 40 MG/4 ML VIAL. IVP SCH (15:00)
[2016-10-22] MEDS: HYDROCODONE/APAP 5/325MG TABLET. PO PRN (15:16)
[2016-10-22] MEDS: FUROSEMIDE 40 MG/4 ML VIAL. IVP SCH (15:17)
--- NOTE | 2016-10-22 15:34 | ACF ---
Admission Forms Criteria HYPERTENSION Clinical Indications for Admission to Inpatient Care ( Place "X" for any and all applicable criteria): Admission is indicated for ANY ONE of the following(1)(2)(3)(4): [ ]I. Hypertensive emergency, with evidence of acute and progressing target organ disease as indicated by ANY ONE of the following: [ ]a) Hypertensive encephalopathy (eg, confusion, altered mental status) [ ]b) Cerebral infarction [ ]c) Intracranial hemorrhage [ ]d) Myocardial ischemia or infarction [ ]e) Pulmonary edema [ ]f) Aortic dissection [ ]g) Seizure [ ]h) Acute renal insufficiency [ ]i) Papilledema [ ]j) Microangiopathic hemolytic anemia [ ]II. Adrenergic crisis (eg, severe hypertension due to pheochromocytoma crisis, cocaine or amphetamine intoxication, or clonidine withdrawal) [X]III. Severe hypertension (SBP greater than 180 mmHg or DBP greater than 110 mmHg or greater than the 95th percentile for age, gender, and height in pediatric patients) that cannot be controlled (eg, to SBP less than 160 mmHg and DBP less than 100 mmHg in adults) by treatment with oral medication in emergency department or observation care Extended stay beyond goal length of stay may be needed for(11)(12)(13): [ ]a) Persistent hypertensive encephalopathy [ ]b) Continuation of pulmonary edema [ ]c) Recurring or persistent severe hypertension [ ]d) Target organ damage (eg, angina, stroke, aortic dissection) [ ]e) Associated renal insufficiency The original [employer] [facility] content created by [employer] has been revised. The portions of the content which have been revised are identified through the use of italic text or in bold, and [facility] has neither reviewed nor approved the modified material. All other unmodified content is copyright [employer] [facility]. Please see references footnoted in the original [employer] [facility] edition 2016 Admission Criteria Met?: Yes LADAN STEVENSON Oct 22, 2016 15:34
--- NOTE | 2016-10-22 15:50 | PDOC2 ---
MAURISIO RAMIREZ BAND BUILDER 10/22/16 1550: CARDIAC CONSULT DATE OF CONSULT Date of Consult DATE: 10/22/16 TIME: 15:35 REASON FOR CONSULT Reason for Consult: CHF REFERRING PHYSICIAN Referring Physician: Dr. Joseph SOURCE Source: Chart review, Patient HISTORY OF PRESENT ILLNESS HISTORY OF PRESENT ILLNESS This is a 45 yo female who presented with complaints of shortness of breath. Patient reports symptoms have been present for the last couple of months, but have been significantly worse the last 2 weeks. Associated with LE edema, orthopnea, and significant abdominal distention. Has a history of hypertension. Was previously on losartan and iron, but has not taken since 2014. Resides in hotel for the last year. Mother has control of fiances and apparently does not provide her with adequate funds. Denies any chest pain, palpitations, dizziness , diaphoresis, or nausea/vomiting. Reports chronic cough, non-productive cough since 2013. Seen in ED a couple of days ago with complaints of SOA. Hgb 6.6- was transfused. Was discharged with prescription for inhaler, but patient was unable to fill. See the week prior for candidiasis infection under bilateral breasts and was again unable to fill prescription. PAST MEDICAL HISTORY Cardiovascular: HTN Pulmonary: No pertinent hx GI: No pertinent hx Heme/Onc: Anemia NOS Hepatobiliary: No pertinent hx Psych: Anxiety, Bipolar, Depression, Schizophrenia Rheumatologic: No pertinent hx Infectious disease: No pertinent hx ENT: No pertinent hx Renal/: No pertinent hx Endocrine: No pertinent hx Dermatology: No pertinent hx PAST SURGICAL HISTORY Past Surgical History: Other (noncontributory ) FAMILY HISTORY Family History: Other (noncontributory ) CURRENT MEDICATIONS CURRENT MEDICATIONS Current Medications Medications (Trade) Dose Ordered Sig/Mary Route PRN Reason Start Time Stop Time Status Last Admin Dose Admin Albuterol Sulfate (Ventolin Neb Soln) 2.5 mg 1X ONCE NEB 10/22/16 10:45 10/22/16 10:46 DC 10/22/16 10:50 Clonidine HCl (Catapres) 0.2 mg 1X ONCE PO 10/22/16 10:45 10/22/16 10:46 DC 10/22/16 10:55 Potassium Chloride (Klor-Con) 40 meq 1X ONCE PO 10/22/16 14:00 10/22/16 14:02 DC 10/22/16 14:08 Acetaminophen/ Hydrocodone Bitart (Lortab 5/325) 1 tab PRN Q4HRS PRN PO MILD PAIN 10/22/16 14:45 10/22/16 15:16 Furosemide (Lasix) 40 mg [id number] IVP 10/22/16 14:00 10/22/16 15:17 Sulfur Hexafluoride Microspheres (Lumason) 25 mg 1X ONCE IVP 10/22/16 15:30 10/22/16 15:31 DC 10/22/16 15:28 ALLERGIES ALLERGIES: Coded Allergies: No Known Drug Allergies (Unverified , 10/19/16) ROS Review of System 14 point ROS conducted with pertinent positives noted above in HPI. PHYSICAL EXAM General: Alert, Oriented X3, Cooperative, mild distress HEENT: Atraumatic, Mucous membr. moist/pink Lungs: Other (diminished throughout ) Heart: Regular rate, Other (unable to appreciate heart tones ) Abdomen: Other (firm, distended, ascites) Extremities: Other (anasarca, 2-3+ pitting bilateral LE edema ) Skin: No breakdown, No significant lesion Neuro: Normal speech, Sensation intact Psych/Mental Status: Mental status NL, Mood NL MUSCULOSKELETAL: Full range of motion without pain VITALS VITALS Vital Signs Date Time Temp Pulse Resp B/P Pulse Ox O2 Delivery O2 Flow Rate FiO2 10/22/16 15:16 20 100 Nasal Cannula 2.0 10/22/16 12:30 87 188/91 10/22/16 10:03 97.9 97.9 LABS Lab: Laboratory Tests Test 10/22/16 10:40 10/22/16 11:55 White Blood Count 12.2x10^3/uL (4.0-11.0) Red Blood Count 4.58x10^6/uL (3.50-5.40) Hemoglobin 8.0g/dL (12.0-15.5) Hematocrit 26.1% (36.0-47.0) Mean Corpuscular Volume 57fL (79-100) Mean Corpuscular Hemoglobin 17pg (25-35) Mean Corpuscular Hemoglobin Concent 31g/dL (31-37) Red Cell Distribution Width 22.9% (11.5-14.5) Platelet Count 259x10^3/uL (140-400) Neutrophils (%) (Auto) 81% (31-73) Lymphocytes (%) (Auto) 11% (24-48) Monocytes (%) (Auto) 5% (0-9) Eosinophils (%) (Auto) 2% (0-3) Basophils (%) (Auto) 1% (0-3) Neutrophils # (Auto) 9.9x10^3uL (1.8-7.7) Lymphocytes # (Auto) 1.3x10^3/uL (1.0-4.8) Monocytes # (Auto) 0.6x10^3/uL (0.0-1.1) Eosinophils # (Auto) 0.2x10^3/uL (0.0-0.7) Basophils # (Auto) 0.1x10^3/uL (0.0-0.2) Sodium Level 144mmol/L (136-145) Potassium Level 3.0mmol/L (3.5-5.1) Chloride Level 107mmol/L (98-107) Carbon Dioxide Level 28mmol/L (21-32) Anion Gap 9 (6-14) Blood Urea Nitrogen 6mg/dL (7-20) Creatinine 0.9mg/dL (0.6-1.0) Estimated GFR (Cockcroft-Gault) 82.3 BUN/Creatinine Ratio 7 (6-20) Glucose Level 119mg/dL (70-99) Calcium Level 7.9mg/dL (8.5-10.1) Total Bilirubin 1.1mg/dL (0.2-1.0) Aspartate Amino Transf (AST/SGOT) 47U/L (15-37) Alanine Aminotransferase (ALT/SGPT) 32U/L (14-59) Alkaline Phosphatase 155U/L (46-116) RM-Bkh-U-Type Natriuretic Peptide 1619pg/mL (0-124) Total Protein 7.2g/dL (6.4-8.2) Albumin 2.8g/dL (3.4-5.0) Albumin/Globulin Ratio 0.6 (1.0-1.7) Amylase Level 68U/L (25-115) Lipase 126U/L (73-393) Urine Collection Type U cath Urine Color Yellow Urine Clarity Clear Urine pH 6.5 Urine Specific [place] 1.015 Urine Protein >=300mg/dL (NEG-TRACE) Urine Glucose (UA) Negativemg/dL (NEG) Urine Ketones (Stick) Negativemg/dL (NEG) Urine Blood Trace (NEG) Urine Nitrite Negative (NEG) Urine Bilirubin Negative (NEG) Urine Urobilinogen Dipstick 1.0mg/dL (0.2 mg/dL) Urine Leukocyte Esterase Negative (NEG) Urine RBC 0/HPF (0-2) Urine WBC 1-4/HPF (0-4) Urine Transitional Epithelial Cells Occ/LPF Urine Amorphous Sediment Present/HPF Urine Bacteria 0/HPF (0-FEW) Urine Test Negative (NEG) ASSESSMENT/PLAN ASSESSMENT/PLAN 1. Acute possibly combined systolic and diastolic HF 2. Right-sided heart failure 3. Dyspnea 4. Malignant hypertension 5. Hypokalemia 6. Abdominal pain 7. Candidiasis infection 8. Anemia 9. Malnutrition 10. Depression/bipolar/schizophrenia 11. Noncompliance Recommendations Obtain echo to assess LV function Check Mg; replace lytes as warranted. check lipids, TSH Aggressive diuresis. Will give additional dose of IV Lasix and potassium now. Maintain BP control. Home antiHTN resumed. Hydralazine PRN Discussed importance of medication compliance Consult social service for assistance with living arrangements Problems: RACHID VILLAGRAN MD 10/22/16 1837: CARDIAC CONSULT ALLERGIES ALLERGIES: Coded Allergies: No Known Drug Allergies (Unverified , 10/19/16) ASSESSMENT/PLAN ASSESSMENT/PLAN Patient seen and examined. Agree with above nurse practitioner note. 45-year-old woman presenting with dyspnea likely related to malignant hypertension and morbid obesity. She has a normal cardiac exam. She has 2+ lower extent Jorge Luis pitting edema. Initiated blood pressure medications and continue diuresis. Problems: MAURISIO RAMIREZ APRN Oct 22, 2016 15:50 RACHID VILLAGRAN MD Oct 22, 2016 18:37
[2016-10-22 15:57] VITALS: BP 186/119
[2016-10-22] MEDS ORDERED: MAGNESIUM SULFATE 2GM 50 ML IV ONE ×2 (16:30→18:30)
[2016-10-22] MEDS ORDERED: FUROSEMIDE 100 MG/10 ML VIAL. IVP ONE (17:00)
--- NOTE | 2016-10-22 17:09 | CARD ---
APPROVED REPORT EXAM: LIMITED Two-dimensional echocardiogram with contrast. Other Information Quality : Technically Limited Rhythm : NSRTechnically limited study due to body habitus. INDICATION Congestive Heart Failure Echo Enhancing Agent Indication: Endocardial border delineation Agent/Amount Used: Lumason 3mL Mitral Valve MV E Fpbquywy31.5cm/sMV E Peak Gr.4mmHg MV DECEL [id number] A Vcosbjqd49.9cm/s MV E Mean Gr.2mmHgMV [id number] E/A Ratio1.3MV A [id number] MVA (PHT)5.79cm2 LEFT VENTRICLE Limited images reveal normal LV function. Wall motion unable to be assessed. EF 55% RIGHT VENTRICLE The right ventricle is normal size. Cannot assess right ventricular systolic function. ATRIA The left atrium was not visualized. The right atrium was not visualizeed. The atrial septum was not w ell visualized. AORTIC VALVE The aortic valve was notl visualized. MITRAL VALVE The mitral valve was not visualized. TRICUSPID VALVE The tricuspid valve was not visualized. PULMONIC VALVE The pulmonic valve was not visualized. GREAT VESSELS The aortic root was not visualized. Pulmonary veins not recorded. Due to poor image quality, the IVC could not be assessed. PERICARDIAL EFFUSION The pericardium was not well visualized. Critical Notification Critical Value: No <Conclusion> The right ventricle is normal size. Limited images reveal normal LV function. Wall motion unable to be assessed. EF 55% Technically very difficult study despite contrast use.
[2016-10-22] MEDS: LOSARTAN POTASSIUM 50 MG TABLET. PO SCH (17:50)
[2016-10-22 18:35] VITALS: BP 186/119
[2016-10-22 19:00] VITALS: BP 158/83
[2016-10-22] MEDS: NYSTATIN TOPICAL POWDER 15GM BOTTLE. TP SCH (21:19)
[2016-10-22] MEDS: AMLODIPINE BESYLATE 10 MG TABLET. PO SCH (21:20)
[2016-10-22] MEDS: HEPARIN PF for SUB-Q USE 5,000 UNIT/0.5 ML VIAL. SQ SCH (21:26)
[2016-10-22 23:16] VITALS: BP 176/109
[2016-10-23 03:00] VITALS: BP 167/103
[2016-10-23] MEDS: HYDROCODONE/APAP 5/325MG TABLET. PO PRN ×2 (03:05→09:58)
[2016-10-23] MEDS: HEPARIN PF for SUB-Q USE 5,000 UNIT/0.5 ML VIAL. SQ SCH ×3 (06:18→21:15)
[2016-10-23 06:28] LABS: BASO # 0.1 x10^3/uL (0.0-0.2); BASO % 1 % (0-3); EOS % 3 % (0-3); HEMATOCRIT 26.8 % (36.0-47.0); HEMOGLOBIN 7.9 g/dL (12.0-15.5); LYMPH # 1.8 x10^3/uL (1.0-4.8); LYMPH % 16 % (24-48); MEAN CORPUSCULAR HEMOGLOBIN 17 pg (25-35); MEAN CORPUSCULAR HGB CONC 29 g/dL (31-37); MEAN CORPUSCULAR VOLUME 57 fL (79-100); MONO % 7 % (0-9); NEUT % 74 % (31-73); PLATELET COUNT 247 x10^3/uL (140-400); RED BLOOD COUNT 4.75 x10^6/uL (3.50-5.40); RED CELL DISTRIBUTION WIDTH 22.9 % (11.5-14.5); WHITE BLOOD COUNT 11.5 x10^3/uL (4.0-11.0)
[2016-10-23 06:49] LABS: CALCIUM 8.6 mg/dL (8.5-10.1); CREATININE 0.8 mg/dL (0.6-1.0); GFR 94.3
[2016-10-23 06:54] LABS: POTASSIUM 2.8 mmol/L (3.5-5.1)
[2016-10-23 07:00] VITALS: BP 166/101
[2016-10-23 07:46] LABS: FOLATE 12.41 ng/ml (3.2-20.0)
[2016-10-23] MEDS ORDERED: LOSARTAN POTASSIUM 50 MG TABLET. PO SCH (09:00)
[2016-10-23] MEDS: NYSTATIN TOPICAL POWDER 15GM BOTTLE. TP SCH ×2 (09:00→21:00)
[2016-10-23] MEDS: POTASSIUM CHLORIDE 10MEQ 100 ML IV SCH ×4 (09:30→15:00)
[2016-10-23] MEDS: AMLODIPINE BESYLATE 10 MG TABLET. PO SCH (09:33)
[2016-10-23] MEDS: LOSARTAN POTASSIUM 50 MG TABLET. PO SCH (09:33)
[2016-10-23] MEDS: POTASSIUM CHLORIDE 20 MEQ TABLET.ER. PO SCH (09:34)
[2016-10-23] MEDS: FUROSEMIDE 40 MG/4 ML VIAL. IVP SCH ×2 (09:35→14:59)
--- NOTE | 2016-10-23 10:32 | PDOC2 ---
GI CONSULT Reason For Consult: Diarrhea HPI: HPI: 45 y/o obese AA female admitted for SOA, cardiology following for heart failure and HTN. GI asked to see re: diarrhea. History is a bit difficult. To me she describes a couple weeks of frequent small loose brown stools. Denies both diarrhea and constipation, hasn't had a BM since admission. Denies obvious bleeding. Has had some right-sided pain worse w/ movement. No n/v, heartburn, reflux, change in appetite, weight loss. Says belches a lot after drinking soda , which is a newer symptom. Doesn't want an EGD or to take antacids, etc., mentions something about "a settlement." Recalls previous colonoscopy being normal in 2000. Was taking Motrin PRN for pain. Has irregular and heavy periods ("come and go" - cannot elaborate more on timing). H/o anemia w/ what seems like sporadic use of iron, last transfused in ER 10/19/16. PMH: PMH: heart failure, HTN, anemia, anxiety/depression, bipolar, schizophrenia, non- compliance FH: Family History: No pertinent hx (denies GI cancers) Social History: Smoke: <1 pack per day ALCOHOL: social Drugs: None ROS: GEN: Denies fevers, chills, sweats HEENT: Denies blurred vision, sore throat CV: Denies chest pain RESP: +SOA GI: Per HPI : Denies hematuria, dysuria ENDO: Denies weight changes NEURO: Denies confusion, dizziness MSK: Denies weakness, joint pain/swelling SKIN: Denies jaundice, pruritus VItals: Vitals: Vital Signs Date Time Temp Pulse Resp B/P Pulse Ox O2 Delivery O2 Flow Rate FiO2 10/23/16 09:58 20 93 Nasal Cannula 2.0 10/23/16 09:33 72 166/101 10/23/16 07:00 97.8 97.8 Labs: Labs: Laboratory Tests Test 10/22/16 10:40 10/22/16 11:55 10/23/16 06:00 White Blood Count 12.2x10^3/uL (4.0-11.0) 11.5x10^3/uL (4.0-11.0) Red Blood Count 4.58x10^6/uL (3.50-5.40) 4.75x10^6/uL (3.50-5.40) Hemoglobin 8.0g/dL (12.0-15.5) 7.9g/dL (12.0-15.5) Hematocrit 26.1% (36.0-47.0) 26.8% (36.0-47.0) Mean Corpuscular Volume 57fL (79-100) 57fL (79-100) Mean Corpuscular Hemoglobin 17pg (25-35) 17pg (25-35) Mean Corpuscular Hemoglobin Concent 31g/dL (31-37) 29g/dL (31-37) Red Cell Distribution Width 22.9% (11.5-14.5) 22.9% (11.5-14.5) Platelet Count 259x10^3/uL (140-400) 247x10^3/uL (140-400) Neutrophils (%) (Auto) 81% (31-73) 74% (31-73) Lymphocytes (%) (Auto) 11% (24-48) 16% (24-48) Monocytes (%) (Auto) 5% (0-9) 7% (0-9) Eosinophils (%) (Auto) 2% (0-3) 3% (0-3) Basophils (%) (Auto) 1% (0-3) 1% (0-3) Neutrophils # (Auto) 9.9x10^3uL (1.8-7.7) 8.5x10^3uL (1.8-7.7) Lymphocytes # (Auto) 1.3x10^3/uL (1.0-4.8) 1.8x10^3/uL (1.0-4.8) Monocytes # (Auto) 0.6x10^3/uL (0.0-1.1) 0.8x10^3/uL (0.0-1.1) Eosinophils # (Auto) 0.2x10^3/uL (0.0-0.7) 0.3x10^3/uL (0.0-0.7) Basophils # (Auto) 0.1x10^3/uL (0.0-0.2) 0.1x10^3/uL (0.0-0.2) Sodium Level 144mmol/L (136-145) 143mmol/L (136-145) Potassium Level 3.0mmol/L (3.5-5.1) 2.8mmol/L (3.5-5.1) Chloride Level 107mmol/L (98-107) 103mmol/L (98-107) Carbon Dioxide Level 28mmol/L (21-32) 32mmol/L (21-32) Anion Gap 9 (6-14) 8 (6-14) Blood Urea Nitrogen 6mg/dL (7-20) 6mg/dL (7-20) Creatinine 0.9mg/dL (0.6-1.0) 0.8mg/dL (0.6-1.0) Estimated GFR (Cockcroft-Gault) 82.3 94.3 BUN/Creatinine Ratio 7 (6-20) Glucose Level 119mg/dL (70-99) 112mg/dL (70-99) Calcium Level 7.9mg/dL (8.5-10.1) 8.6mg/dL (8.5-10.1) Magnesium Level 1.3mg/dL (1.8-2.4) 2.0mg/dL (1.8-2.4) Total Bilirubin 1.1mg/dL (0.2-1.0) Aspartate Amino Transf (AST/SGOT) 47U/L (15-37) Alanine Aminotransferase (ALT/SGPT) 32U/L (14-59) Alkaline Phosphatase 155U/L (46-116) SH-Tox-X-Type Natriuretic Peptide 1619pg/mL (0-124) Total Protein 7.2g/dL (6.4-8.2) Albumin 2.8g/dL (3.4-5.0) Albumin/Globulin Ratio 0.6 (1.0-1.7) Amylase Level 68U/L (25-115) Lipase 126U/L (73-393) Urine Collection Type U cath Urine Color Yellow Urine Clarity Clear Urine pH 6.5 Urine Specific [place] 1.015 Urine Protein >=300mg/dL (NEG-TRACE) Urine Glucose (UA) Negativemg/dL (NEG) Urine Ketones (Stick) Negativemg/dL (NEG) Urine Blood Trace (NEG) Urine Nitrite Negative (NEG) Urine Bilirubin Negative (NEG) Urine Urobilinogen Dipstick 1.0mg/dL (0.2 mg/dL) Urine Leukocyte Esterase Negative (NEG) Urine RBC 0/HPF (0-2) Urine WBC 1-4/HPF (0-4) Urine Transitional Epithelial Cells Occ/LPF Urine Amorphous Sediment Present/HPF Urine Bacteria 0/HPF (0-FEW) Urine Test Negative (NEG) Iron Level 20ug/dL (50-170) Ferritin 16ng/mL (8-252) Triglycerides Level 52mg/dL (0-150) Cholesterol Level 103mg/dL (0-200) LDL Cholesterol, Calculated 59mg/dL (0-100) VLDL Cholesterol, Calculated 10mg/dL (0-40) HDL Cholesterol 34mg/dL (40-60) Cholesterol/HDL Ratio 3.0 Vitamin B12 Level 413pg/mL (247-911) Serum Folate 12.41ng/ml (3.2-20.0) Thyroid Stimulating Hormone (TSH) 1.135uIU/mL (0.358-3.74) Allergies: Coded Allergies: No Known Drug Allergies (Unverified , 10/19/16) Medications: Current Medications Medications (Trade) Dose Ordered Sig/Mary Route PRN Reason Start Time Stop Time Status Last Admin Dose Admin Albuterol Sulfate (Ventolin Neb Soln) 2.5 mg 1X ONCE NEB 10/22/16 10:45 10/22/16 10:46 DC 10/22/16 10:50 Clonidine HCl (Catapres) 0.2 mg 1X ONCE PO 10/22/16 10:45 10/22/16 10:46 DC 10/22/16 10:55 Potassium Chloride (Klor-Con) 40 meq 1X ONCE PO 10/22/16 14:00 10/22/16 14:02 DC 10/22/16 14:08 Acetaminophen/ Hydrocodone Bitart (Lortab 5/325) 1 tab PRN Q4HRS PRN PO MILD PAIN 10/22/16 14:45 10/23/16 09:58 Heparin Sodium (Porcine) 5,000 unit Q8HRS SQ 10/22/16 22:00 10/23/16 06:18 Losartan Potassium (Cozaar) 100 mg DAILY PO 10/22/16 16:00 10/23/16 09:33 Nystatin (Nystop) 1 kade BID TP 4/19/17 21:00 10/22/16 21:19 Furosemide (Lasix) 40 mg [id number] IVP 10/22/16 14:00 10/23/16 09:35 Sulfur Hexafluoride Microspheres (Lumason) 25 mg 1X ONCE IVP 10/22/16 15:30 10/22/16 15:31 DC 10/22/16 15:28 Potassium Chloride (Klor-Con) 40 meq 1X ONCE PO 10/22/16 17:00 10/22/16 17:01 DC 10/22/16 17:49 Potassium Chloride (Klor-Con) 40 meq DAILY PO 10/23/16 09:00 10/23/16 09:34 Furosemide 60 mg 60 mg 1X ONCE IVP 10/22/16 17:00 10/22/16 17:01 DC 10/22/16 17:49 Magnesium Sulfate/ Dextrose 50 ml @ 25 mls/hr 1X ONCE IV 10/22/16 16:30 10/22/16 18:29 DC 10/22/16 17:50 Magnesium Sulfate/ Dextrose (Magnesium Sulfate PREMIX 2GM) 50 ml @ 25 mls/hr 1X ONCE IV 10/22/16 18:30 10/22/16 20:29 DC 10/22/16 21:19 Amlodipine Besylate 10 mg 10 mg DAILY PO 10/22/16 19:30 10/23/16 09:33 Potassium Chloride (KCl Premix 10meq) 100 ml @ 100 mls/hr Q1H IV 10/23/16 08:30 10/23/16 12:29 10/23/16 09:35 Imaging: Imaging: CT A/P w/o contrast IMPRESSION: Diffuse soft tissue swelling. Clinical correlation advised. No focal or acute process seen in the abdomen or pelvis. Small right pleural effusion. Volume loss at the right lung base ventrally may reflect atelectasis or scar. A pneumonic focus is not entirely excluded. PE: GEN: obese, anasarca HEENT: Atraumatic, PERRL LUNGS: diminished, nasal cannula HEART: RRR ABD: tight, non-tender, obese EXTREMITY: BLE edema SKIN: No rashes, no jaundice NEURO/PSYCH: A & O 3 A/P: A/P: WILLA -h/o this, was previously on iron -?metromenorrhagia Belching -after drinking soda -not interested in GERD treatment or EGD Irregular bowel habits -difficult to classy, describes frequent small loose stools prior to admission -reports normal colonoscopy in 2000 Heart failure, HTN, SOA, anasarca Psych issues, non-compliance NSAID use -previous on Motrin PRN -- ?pelvic sono ?abnormal uterus on CT Other per Dr. Mckee. YARELIS ORR Oct 23, 2016 10:32
[2016-10-23 11:24] VITALS: BP 154/89
--- NOTE | 2016-10-23 11:56 | PDOC ---
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 Vitals Vitals Vital Signs Date Time Temp Pulse Resp B/P Pulse Ox O2 Delivery O2 Flow Rate FiO2 10/23/16 11:24 97.6 72 20 154/89 94 Room Air 97.6 10/23/16 09:58 2.0 Physical Exam General: Alert, Oriented X3, mild distress, Other (not very cooperative) Heart: Regular rate, Other (unable to appreciate heart tones ) Abdomen: Other (firm, distended, ascites) Extremities: Other (anasarca, 2-3+ pitting bilateral LE edema ) Skin: No breakdown, No significant lesion Labs LABS Laboratory Tests Test 10/22/16 11:55 10/23/16 06:00 Urine Collection Type U cath Urine Color Yellow Urine Clarity Clear Urine pH 6.5 Urine Specific [place] 1.015 Urine Protein >=300mg/dL (NEG-TRACE) Urine Glucose (UA) Negativemg/dL (NEG) Urine Ketones (Stick) Negativemg/dL (NEG) Urine Blood Trace (NEG) Urine Nitrite Negative (NEG) Urine Bilirubin Negative (NEG) Urine Urobilinogen Dipstick 1.0mg/dL (0.2 mg/dL) Urine Leukocyte Esterase Negative (NEG) Urine RBC 0/HPF (0-2) Urine WBC 1-4/HPF (0-4) Urine Transitional Epithelial Cells Occ/LPF Urine Amorphous Sediment Present/HPF Urine Bacteria 0/HPF (0-FEW) Urine Test Negative (NEG) White Blood Count 11.5x10^3/uL (4.0-11.0) Red Blood Count 4.75x10^6/uL (3.50-5.40) Hemoglobin 7.9g/dL (12.0-15.5) Hematocrit 26.8% (36.0-47.0) Mean Corpuscular Volume 57fL (79-100) Mean Corpuscular Hemoglobin 17pg (25-35) Mean Corpuscular Hemoglobin Concent 29g/dL (31-37) Red Cell Distribution Width 22.9% (11.5-14.5) Platelet Count 247x10^3/uL (140-400) Neutrophils (%) (Auto) 74% (31-73) Lymphocytes (%) (Auto) 16% (24-48) Monocytes (%) (Auto) 7% (0-9) Eosinophils (%) (Auto) 3% (0-3) Basophils (%) (Auto) 1% (0-3) Neutrophils # (Auto) 8.5x10^3uL (1.8-7.7) Lymphocytes # (Auto) 1.8x10^3/uL (1.0-4.8) Monocytes # (Auto) 0.8x10^3/uL (0.0-1.1) Eosinophils # (Auto) 0.3x10^3/uL (0.0-0.7) Basophils # (Auto) 0.1x10^3/uL (0.0-0.2) Sodium Level 143mmol/L (136-145) Potassium Level 2.8mmol/L (3.5-5.1) Chloride Level 103mmol/L (98-107) Carbon Dioxide Level 32mmol/L (21-32) Anion Gap 8 (6-14) Blood Urea Nitrogen 6mg/dL (7-20) Creatinine 0.8mg/dL (0.6-1.0) Estimated GFR (Cockcroft-Gault) 94.3 Glucose Level 112mg/dL (70-99) Calcium Level 8.6mg/dL (8.5-10.1) Magnesium Level 2.0mg/dL (1.8-2.4) Iron Level 20ug/dL (50-170) Ferritin 16ng/mL (8-252) Triglycerides Level 52mg/dL (0-150) Cholesterol Level 103mg/dL (0-200) LDL Cholesterol, Calculated 59mg/dL (0-100) VLDL Cholesterol, Calculated 10mg/dL (0-40) HDL Cholesterol 34mg/dL (40-60) Cholesterol/HDL Ratio 3.0 Vitamin B12 Level 413pg/mL (247-911) Serum Folate 12.41ng/ml (3.2-20.0) Thyroid Stimulating Hormone (TSH) 1.135uIU/mL (0.358-3.74) Review of Systems Review of Systems Usha reported that "" "demonic spirits" need to be driven out of me "" she then declined pastoral care consult, and got mad at me for asking, reporting that she "knows Kel Phillips" odd behavior Assessment and Plan Assessmemt and Plan Problems Medical Problems: (1) Abdominal pain Status: Acute (2) Marce infection Status: Acute (3) Dyspnea Status: Acute (4) Essential hypertension Status: Acute (5) Hypokalemia Status: Acute Problems: Comment Review of Relevant I have reviewed the following items fabio (where applicable) has been applied. Labs Laboratory Tests Test 10/22/16 10:40 10/22/16 11:55 10/23/16 06:00 White Blood Count 12.2x10^3/uL (4.0-11.0) 11.5x10^3/uL (4.0-11.0) Red Blood Count 4.58x10^6/uL (3.50-5.40) 4.75x10^6/uL (3.50-5.40) Hemoglobin 8.0g/dL (12.0-15.5) 7.9g/dL (12.0-15.5) Hematocrit 26.1% (36.0-47.0) 26.8% (36.0-47.0) Mean Corpuscular Volume 57fL (79-100) 57fL (79-100) Mean Corpuscular Hemoglobin 17pg (25-35) 17pg (25-35) Mean Corpuscular Hemoglobin Concent 31g/dL (31-37) 29g/dL (31-37) Red Cell Distribution Width 22.9% (11.5-14.5) 22.9% (11.5-14.5) Platelet Count 259x10^3/uL (140-400) 247x10^3/uL (140-400) Neutrophils (%) (Auto) 81% (31-73) 74% (31-73) Lymphocytes (%) (Auto) 11% (24-48) 16% (24-48) Monocytes (%) (Auto) 5% (0-9) 7% (0-9) Eosinophils (%) (Auto) 2% (0-3) 3% (0-3) Basophils (%) (Auto) 1% (0-3) 1% (0-3) Neutrophils # (Auto) 9.9x10^3uL (1.8-7.7) 8.5x10^3uL (1.8-7.7) Lymphocytes # (Auto) 1.3x10^3/uL (1.0-4.8) 1.8x10^3/uL (1.0-4.8) Monocytes # (Auto) 0.6x10^3/uL (0.0-1.1) 0.8x10^3/uL (0.0-1.1) Eosinophils # (Auto) 0.2x10^3/uL (0.0-0.7) 0.3x10^3/uL (0.0-0.7) Basophils # (Auto) 0.1x10^3/uL (0.0-0.2) 0.1x10^3/uL (0.0-0.2) Sodium Level 144mmol/L (136-145) 143mmol/L (136-145) Potassium Level 3.0mmol/L (3.5-5.1) 2.8mmol/L (3.5-5.1) Chloride Level 107mmol/L (98-107) 103mmol/L (98-107) Carbon Dioxide Level 28mmol/L (21-32) 32mmol/L (21-32) Anion Gap 9 (6-14) 8 (6-14) Blood Urea Nitrogen 6mg/dL (7-20) 6mg/dL (7-20) Creatinine 0.9mg/dL (0.6-1.0) 0.8mg/dL (0.6-1.0) Estimated GFR (Cockcroft-Gault) 82.3 94.3 BUN/Creatinine Ratio 7 (6-20) Glucose Level 119mg/dL (70-99) 112mg/dL (70-99) Calcium Level 7.9mg/dL (8.5-10.1) 8.6mg/dL (8.5-10.1) Magnesium Level 1.3mg/dL (1.8-2.4) 2.0mg/dL (1.8-2.4) Total Bilirubin 1.1mg/dL (0.2-1.0) Aspartate Amino Transf (AST/SGOT) 47U/L (15-37) Alanine Aminotransferase (ALT/SGPT) 32U/L (14-59) Alkaline Phosphatase 155U/L (46-116) DX-Ajk-I-Type Natriuretic Peptide 1619pg/mL (0-124) Total Protein 7.2g/dL (6.4-8.2) Albumin 2.8g/dL (3.4-5.0) Albumin/Globulin Ratio 0.6 (1.0-1.7) Amylase Level 68U/L (25-115) Lipase 126U/L (73-393) Urine Collection Type U cath Urine Color Yellow Urine Clarity Clear Urine pH 6.5 Urine Specific [place] 1.015 Urine Protein >=300mg/dL (NEG-TRACE) Urine Glucose (UA) Negativemg/dL (NEG) Urine Ketones (Stick) Negativemg/dL (NEG) Urine Blood Trace (NEG) Urine Nitrite Negative (NEG) Urine Bilirubin Negative (NEG) Urine Urobilinogen Dipstick 1.0mg/dL (0.2 mg/dL) Urine Leukocyte Esterase Negative (NEG) Urine RBC 0/HPF (0-2) Urine WBC 1-4/HPF (0-4) Urine Transitional Epithelial Cells Occ/LPF Urine Amorphous Sediment Present/HPF Urine Bacteria 0/HPF (0-FEW) Urine Test Negative (NEG) Iron Level 20ug/dL (50-170) Ferritin 16ng/mL (8-252) Triglycerides Level 52mg/dL (0-150) Cholesterol Level 103mg/dL (0-200) LDL Cholesterol, Calculated 59mg/dL (0-100) VLDL Cholesterol, Calculated 10mg/dL (0-40) HDL Cholesterol 34mg/dL (40-60) Cholesterol/HDL Ratio 3.0 Vitamin B12 Level 413pg/mL (247-911) Serum Folate 12.41ng/ml (3.2-20.0) Thyroid Stimulating Hormone (TSH) 1.135uIU/mL (0.358-3.74) Laboratory Tests Test 10/22/16 11:55 10/23/16 06:00 Urine Collection Type U cath Urine Color Yellow Urine Clarity Clear Urine pH 6.5 Urine Specific [place] 1.015 Urine Protein >=300mg/dL (NEG-TRACE) Urine Glucose (UA) Negativemg/dL (NEG) Urine Ketones (Stick) Negativemg/dL (NEG) Urine Blood Trace (NEG) Urine Nitrite Negative (NEG) Urine Bilirubin Negative (NEG) Urine Urobilinogen Dipstick 1.0mg/dL (0.2 mg/dL) Urine Leukocyte Esterase Negative (NEG) Urine RBC 0/HPF (0-2) Urine WBC 1-4/HPF (0-4) Urine Transitional Epithelial Cells Occ/LPF Urine Amorphous Sediment Present/HPF Urine Bacteria 0/HPF (0-FEW) Urine Test Negative (NEG) White Blood Count 11.5x10^3/uL (4.0-11.0) Red Blood Count 4.75x10^6/uL (3.50-5.40) Hemoglobin 7.9g/dL (12.0-15.5) Hematocrit 26.8% (36.0-47.0) Mean Corpuscular Volume 57fL (79-100) Mean Corpuscular Hemoglobin 17pg (25-35) Mean Corpuscular Hemoglobin Concent 29g/dL (31-37) Red Cell Distribution Width 22.9% (11.5-14.5) Platelet Count 247x10^3/uL (140-400) Neutrophils (%) (Auto) 74% (31-73) Lymphocytes (%) (Auto) 16% (24-48) Monocytes (%) (Auto) 7% (0-9) Eosinophils (%) (Auto) 3% (0-3) Basophils (%) (Auto) 1% (0-3) Neutrophils # (Auto) 8.5x10^3uL (1.8-7.7) Lymphocytes # (Auto) 1.8x10^3/uL (1.0-4.8) Monocytes # (Auto) 0.8x10^3/uL (0.0-1.1) Eosinophils # (Auto) 0.3x10^3/uL (0.0-0.7) Basophils # (Auto) 0.1x10^3/uL (0.0-0.2) Sodium Level 143mmol/L (136-145) Potassium Level 2.8mmol/L (3.5-5.1) Chloride Level 103mmol/L (98-107) Carbon Dioxide Level 32mmol/L (21-32) Anion Gap 8 (6-14) Blood Urea Nitrogen 6mg/dL (7-20) Creatinine 0.8mg/dL (0.6-1.0) Estimated GFR (Cockcroft-Gault) 94.3 Glucose Level 112mg/dL (70-99) Calcium Level 8.6mg/dL (8.5-10.1) Magnesium Level 2.0mg/dL (1.8-2.4) Iron Level 20ug/dL (50-170) Ferritin 16ng/mL (8-252) Triglycerides Level 52mg/dL (0-150) Cholesterol Level 103mg/dL (0-200) LDL Cholesterol, Calculated 59mg/dL (0-100) VLDL Cholesterol, Calculated 10mg/dL (0-40) HDL Cholesterol 34mg/dL (40-60) Cholesterol/HDL Ratio 3.0 Vitamin B12 Level 413pg/mL (247-911) Serum Folate 12.41ng/ml (3.2-20.0) Thyroid Stimulating Hormone (TSH) 1.135uIU/mL (0.358-3.74) Medications Current Medications Albuterol Sulfate (Ventolin Neb Soln) 2.5 mg 1X ONCE NEB Last administered on 10/22/16 10:50; Start 10/22/16 at 10:45; Stop 10/22/16 at 10:46; Status DC Clonidine HCl (Catapres) 0.2 mg 1X ONCE PO Last administered on 10/22/16 10: 55; Start 10/22/16 at 10:45; Stop 10/22/16 at 10:46; Status DC Potassium Chloride (Klor-Con) 40 meq 1X ONCE PO Last administered on 14:08; Start 10/22/16 at 14:00; Stop 10/22/16 at 14:02; Status DC Losartan Potassium (Cozaar) 50 mg DAILY PO ; Start 10/23/16 at 09:00; Stop 10/23 at 09:00; Status DC Ondansetron HCl (Zofran) 4 mg PRN Q6HRS PRN IV NAUSEA/VOMITING; Start 10/22/16 at 14:45 Morphine Sulfate 1 mg PRN Q1HR PRN IV PAIN; Start 10/22/16 at 14:45 Acetaminophen/ Hydrocodone Bitart (Lortab 5/325) 1 tab PRN Q4HRS PRN PO MILD PAIN Last administered on 10/23/16 09:58; Start 10/22/16 at 14:45 Acetaminophen (Tylenol) 650 mg PRN Q6HRS PRN PO MILD PAIN / TEMP; Start at 14:45 Heparin Sodium (Porcine) 5,000 unit Q8HRS SQ Last administered on 10/23/16 06: 18; Start 10/22/16 at 22:00 Losartan Potassium (Cozaar) 100 mg DAILY PO Last administered on 10/23/16 09: 33; Start 10/22/16 at 16:00 Acetaminophen (Tylenol) 650 mg PRN Q6HRS PRN PO FEVER; Start 10/22/16 at 14:45 ; Stop 10/22/16 at 14:45; Status DC Ondansetron HCl (Zofran) 4 mg PRN Q6HRS PRN IV NAUSEA/VOMITING; Start 10/22/16 at 14:45; Stop 10/22/16 at 14:46; Status DC Hydralazine HCl (Apresoline) 10 mg PRN Q4HRS PRN IVP ELEVATED BP, SEE COMMENTS ; Start 10/22/16 at 14:45 Nystatin (Nystop) 1 kade BID TP Last administered on 10/22/16 21:19; Start at 21:00 Furosemide (Lasix) 40 mg DAILY IVP ; Start 10/22/16 at 15:00; Stop 10/22/16 at 15:00; Status DC Furosemide (Lasix) 40 mg [id number] IVP Last administered on 10/23/16 09:35; Start 10/22/16 at 14:00 Haloperidol Lactate (Haldol) 5 mg PRN Q4HRS PRN IVP ANXIETY / AGITATION; Start 10/22/16 at 14:45 Sulfur Hexafluoride Microspheres (Lumason) 25 mg STK-MED ONCE IVP ; Start at 14:47; Stop 10/22/16 at 14:48; Status DC Albuterol Sulfate (Ventolin Neb Soln) 2.5 mg PRN Q4HRS PRN NEB SHORTNESS OF BREATH; Start 10/22/16 at 15:00 Sulfur Hexafluoride Microspheres (Lumason) 25 mg 1X ONCE IVP Last administered on 10/22/16 15:28; Start 10/22/16 at 15:30; Stop 10/22/16 at 15:31 ; Status DC Potassium Chloride (Klor-Con) 40 meq 1X ONCE PO Last administered on 17:49; Start 10/22/16 at 17:00; Stop 10/22/16 at 17:01; Status DC Potassium Chloride (Klor-Con) 40 meq DAILY PO Last administered on 10/23/16 09 :34; Start 10/23/16 at 09:00 Furosemide 60 mg 60 mg 1X ONCE IVP Last administered on 10/22/16 17:49; Start 10/22/16 at 17:00; Stop 10/22/16 at 17:01; Status DC Magnesium Sulfate/ Dextrose 50 ml @ 25 mls/hr 1X ONCE IV Last administered on 10/22/16 17:50; Start 10/22/16 at 16:30; Stop 10/22/16 at 18:29; Status DC Magnesium Sulfate/ Dextrose (Magnesium Sulfate PREMIX 2GM) 50 ml @ 25 mls/hr 1X ONCE IV Last administered on 10/22/16 21:19; Start 10/22/16 at 18:30; Stop 10/22/16 at 20:29; Status DC Amlodipine Besylate 10 mg 10 mg DAILY PO Last administered on 10/23/16 09:33; Start 10/22/16 at 19:30 Potassium Chloride (KCl Premix 10meq) 100 ml @ 100 mls/hr Q1H IV Last administered on 10/23/16 09:30; Start 10/23/16 at 08:30; Stop 10/23/16 at 12:29 Active Scripts Active Losartan Potassium 50 Mg Tablet 50 Mg PO DAILY Proair Hfa Inhaler (Albuterol Sulfate) 8.5 Gm Hfa.aer.ad 2 Puff INH Q4-6HRS PRN Lotrisone Cream (Clotrimazole/Betamethasone Dip) 15 Gm Cream..g. 1 Kade TP BID Vitals/I & O Vital Sign - Last 24 Hours 10/22/16 10/22/16 10/22/16 10/22/16 12:00 12:30 13:00 13:30 Pulse 80 87 81 83 Resp 26 16 B/P 192/114 188/91 180/90 184/96 Pulse Ox 94 99 O2 Delivery Nasal Cannula Nasal Cannula O2 Flow Rate 2 2 10/22/16 10/22/16 10/22/16 10/22/16 14:00 14:30 15:00 15:16 Pulse 76 76 80 Resp 20 20 17 20 B/P 196/105 190/105 179/92 Pulse Ox 100 100 100 100 O2 Delivery Nasal Cannula Nasal Cannula Nasal Cannula Nasal Cannula O2 Flow Rate 2 2 2 2.0 10/22/16 10/22/16 10/22/16 10/22/16 15:30 15:52 15:57 17:50 Temp 97.8 97.8 Pulse 80 82 82 Resp 10 14 B/P 193/102 186/119 186/119 Pulse Ox 100 100 100 O2 Delivery Nasal Cannula Nasal Cannula Nasal Cannula O2 Flow Rate 2 2.0 2.0 10/22/16 10/22/16 10/22/16 10/22/16 18:21 18:35 19:00 19:45 Temp 97.8 96.1 97.8 96.1 Pulse 82 85 Resp 20 B/P 186/119 158/83 Pulse Ox 100 96 O2 Delivery Nasal Cannula Room Air Nasal Cannula O2 Flow Rate 2.0 2.0 2.0 10/22/16 10/22/16 10/23/16 10/23/16 21:20 23:16 03:00 03:05 Temp 97.3 98.0 97.3 98.0 Pulse 80 79 77 Resp 18 18 22 B/P 179/108 176/109 167/103 Pulse Ox 94 93 O2 Delivery Nasal Cannula Nasal Cannula Nasal Cannula O2 Flow Rate 2.0 2.0 2.0 10/23/16 10/23/16 10/23/16 10/23/16 04:04 07:00 09:33 09:33 Temp 97.8 97.8 Pulse 72 72 72 Resp 22 B/P 166/101 166/101 166/101 Pulse Ox 97 O2 Delivery Nasal Cannula O2 Flow Rate 2.0 10/23/16 10/23/16 10/23/16 09:58 11:00 11:24 Temp 97.6 97.6 Pulse 72 Resp 20 20 20 B/P 154/89 Pulse Ox 93 93 94 O2 Delivery Nasal Cannula Room Air Room Air O2 Flow Rate 2.0 Intake and Output 10/22/16 10/22/16 10/23/16 15:00 23:00 07:00 Intake Total 50 ml 50 ml Output Total 200 ml 3500 ml Balance -150 ml -3450 ml ISRA STOKES MD Oct 23, 2016 11:56
[2016-10-23] MEDS ORDERED: MAGNESIUM SULFATE 4GM 100 ML IV ONE (12:00)
[2016-10-23] MEDS ORDERED: POTASSIUM CHLORIDE 20 MEQ TABLET.ER. PO ONE (12:00)
--- NOTE | 2016-10-23 12:47 | PDOC ---
CARDIO Progress Notes Date and Time Date of Service 10/23/16 Time of Evaluation 1210 Subjective Subjective: No Chest Pain, Other (mild SOA- concerned someone knows she's here and is taking her oxygen from her. ) Vitals Vitals Vital Signs Date Time Temp Pulse Resp B/P Pulse Ox O2 Delivery O2 Flow Rate FiO2 10/23/16 11:24 97.6 72 20 154/89 94 Room Air 97.6 10/23/16 09:58 2.0 Weight Weight [ ] Input and Output Intake and Output Intake and Output 10/23/16 07:00 Intake Total 100 ml Output Total 3700 ml Balance -3600 ml Intake IV Total 100 ml Output Urine Total 3700 ml # Voids 1 Laboratory Labs Laboratory Tests Test 10/23/16 06:00 White Blood Count 11.5x10^3/uL (4.0-11.0) Red Blood Count 4.75x10^6/uL (3.50-5.40) Hemoglobin 7.9g/dL (12.0-15.5) Hematocrit 26.8% (36.0-47.0) Mean Corpuscular Volume 57fL (79-100) Mean Corpuscular Hemoglobin 17pg (25-35) Mean Corpuscular Hemoglobin Concent 29g/dL (31-37) Red Cell Distribution Width 22.9% (11.5-14.5) Platelet Count 247x10^3/uL (140-400) Neutrophils (%) (Auto) 74% (31-73) Lymphocytes (%) (Auto) 16% (24-48) Monocytes (%) (Auto) 7% (0-9) Eosinophils (%) (Auto) 3% (0-3) Basophils (%) (Auto) 1% (0-3) Neutrophils # (Auto) 8.5x10^3uL (1.8-7.7) Lymphocytes # (Auto) 1.8x10^3/uL (1.0-4.8) Monocytes # (Auto) 0.8x10^3/uL (0.0-1.1) Eosinophils # (Auto) 0.3x10^3/uL (0.0-0.7) Basophils # (Auto) 0.1x10^3/uL (0.0-0.2) Sodium Level 143mmol/L (136-145) Potassium Level 2.8mmol/L (3.5-5.1) Chloride Level 103mmol/L (98-107) Carbon Dioxide Level 32mmol/L (21-32) Anion Gap 8 (6-14) Blood Urea Nitrogen 6mg/dL (7-20) Creatinine 0.8mg/dL (0.6-1.0) Estimated GFR (Cockcroft-Gault) 94.3 Glucose Level 112mg/dL (70-99) Calcium Level 8.6mg/dL (8.5-10.1) Magnesium Level 2.0mg/dL (1.8-2.4) Iron Level 20ug/dL (50-170) Ferritin 16ng/mL (8-252) Triglycerides Level 52mg/dL (0-150) Cholesterol Level 103mg/dL (0-200) LDL Cholesterol, Calculated 59mg/dL (0-100) VLDL Cholesterol, Calculated 10mg/dL (0-40) HDL Cholesterol 34mg/dL (40-60) Cholesterol/HDL Ratio 3.0 Vitamin B12 Level 413pg/mL (247-911) Serum Folate 12.41ng/ml (3.2-20.0) Thyroid Stimulating Hormone (TSH) 1.135uIU/mL (0.358-3.74) Physical Exam HEENT: Neck Supple W Full Motion Chest: Symmetric LUNGS: Other (diminished throughout ) Heart: S1S2, RRR, other (distant heart tones ) Abdomen: Other (firm, distended, ascites) Extremities: Other (anasarca, 2-3+ pitting bilateral LE jany) Neurology: alert, oriented, follow commands Assessment Assessment 1. Acute diastolic HF 2. Hypertensive heart disease 3. Dyspnea 4. Hypertension 5. Hypokalemia 8. Morbid obesity 10. Depression/bipolar/schizophrenia 11. Noncompliance Recommendations Will add lisinopril for better blood pressure control Caution use of CCB with potential to worsen LE edema Echo with preserved LV function; study limited due to body habitus Continue diuresis K replaced; monitor lytes Continue supportive care MAURISIO RAMIREZ APRN Oct 23, 2016 12:47
[2016-10-23] MEDS ORDERED: IRON SUCROSE COMPLEX 200 MG in IV NORMAL SALINE 100ML 100 ML IV ONE (13:00)
[2016-10-23] MEDS: VITAMIN B12,B9,B6 COMPLEX 1 TABLET. PO SCH (13:14)
[2016-10-23] MEDS: IRON POLYSACCHARIDE COMPLEX 150 MG CAPSULE PO SCH (13:15)
[2016-10-23 15:02] VITALS: BP 134/88
[2016-10-23] MEDS: LISINOPRIL 10 MG TABLET PO SCH (17:19)
[2016-10-23 19:00] VITALS: BP 158/88
[2016-10-23 22:58] VITALS: BP 137/92
[2016-10-24] MEDS: HYDROCODONE/APAP 5/325MG TABLET. PO PRN ×3 (00:51→19:55)
[2016-10-24 02:43] VITALS: BP 137/93
[2016-10-24] MEDS: HEPARIN PF for SUB-Q USE 5,000 UNIT/0.5 ML VIAL. SQ SCH ×3 (05:58→22:00)
[2016-10-24 07:00] VITALS: BP 152/94
[2016-10-24] MEDS: IRON POLYSACCHARIDE COMPLEX 150 MG CAPSULE PO SCH (09:00)
[2016-10-24] MEDS: NYSTATIN TOPICAL POWDER 15GM BOTTLE. TP SCH ×2 (09:00→21:00)
[2016-10-24] MEDS: FERROUS SULFATE 325 MG TABLET. PO SCH (09:05)
[2016-10-24] MEDS: POTASSIUM CHLORIDE 20 MEQ TABLET.ER. PO SCH (09:06)
[2016-10-24] MEDS: LISINOPRIL 10 MG TABLET PO SCH (09:06)
[2016-10-24] MEDS: VITAMIN B12,B9,B6 COMPLEX 1 TABLET. PO SCH (09:06)
[2016-10-24] MEDS: AMLODIPINE BESYLATE 10 MG TABLET. PO SCH (09:07)
[2016-10-24] MEDS: LOSARTAN POTASSIUM 50 MG TABLET. PO SCH (09:07)
[2016-10-24] MEDS: FUROSEMIDE 40 MG/4 ML VIAL. IVP SCH ×2 (09:08→15:51)
--- NOTE | 2016-10-24 09:25 | PDOC ---
PROGRESS NOTES Chief Complaint Chief Complaint ANasarca CHF with preserved EF cor pulmonale hypoxia, SOA< pickwinian Schizophrenia WILLA by documentation Hx myoma s/p myomectomy (yrs ago) Abdominal pain w/ diarrhea, resolved - \\NOW CONSTIPATED Candidiasis infection Malnutrition, moderate in morbid obesity, BMI 62 Medical Noncompliance History of Present Illness History of Present Illness Got upset when I was introducing dc Wants the SW back to talk to her with her mother again - she wouldnt tell me reason but it were social reasons I and O- neg 3.6 L past few days On lasix 40 IV BID, K 2,.9 getting replacements EF reveiwed, normal EF Not on lasix at the motel Does not want to be in [facility] [place] [facility] Claims she still cant walk bec legs swollen Tried to get more hx about "WILLA", no heavy periods recently Old records incolved GI - FOBT was ordered, results? GYne was consulted-- mention of sono,,, PLAN: Stool regimen, FOBT Pelvic sono Start Ferrous sulfate - on heparin SW for now for DVT SW on board Strict I and O Recheck lytes cary Replace K prn Dw pt and RN at bedside Vitals Vitals Vital Signs Date Time Temp Pulse Resp B/P Pulse Ox O2 Delivery O2 Flow Rate FiO2 10/24/16 09:07 80 137/93 10/24/16 05:49 20 Room Air 10/24/16 02:43 97.3 93 97.3 10/23/16 20:00 2.0 Physical Exam General: Alert, Oriented X3, mild distress, Other (not very cooperative) Heart: Regular rate, Other (unable to appreciate heart tones ) Abdomen: Normal bowel sounds, No tenderness, Other (firm, distended, ascites) Extremities: No clubbing, No cyanosis, Other (anasarca, 2-3+ pitting bilateral LE edema ) Skin: No breakdown, No significant lesion Review of Systems Review of Systems no cp, claims soa, claims flank pain, leg swelling, constipated Assessment and Plan Assessmemt and Plan Problems Medical Problems: (1) Abdominal pain Status: Acute (2) Marce infection Status: Acute (3) Dyspnea Status: Acute (4) Essential hypertension Status: Acute (5) Hypokalemia Status: Acute Problems: Comment Review of Relevant I have reviewed the following items fabio (where applicable) has been applied. Labs Laboratory Tests Test 4/19/17 10:40 10/22/16 11:55 10/23/16 06:00 White Blood Count 12.2x10^3/uL (4.0-11.0) 11.5x10^3/uL (4.0-11.0) Red Blood Count 4.58x10^6/uL (3.50-5.40) 4.75x10^6/uL (3.50-5.40) Hemoglobin 8.0g/dL (12.0-15.5) 7.9g/dL (12.0-15.5) Hematocrit 26.1% (36.0-47.0) 26.8% (36.0-47.0) Mean Corpuscular Volume 57fL (79-100) 57fL (79-100) Mean Corpuscular Hemoglobin 17pg (25-35) 17pg (25-35) Mean Corpuscular Hemoglobin Concent 31g/dL (31-37) 29g/dL (31-37) Red Cell Distribution Width 22.9% (11.5-14.5) 22.9% (11.5-14.5) Platelet Count 259x10^3/uL (140-400) 247x10^3/uL (140-400) Neutrophils (%) (Auto) 81% (31-73) 74% (31-73) Lymphocytes (%) (Auto) 11% (24-48) 16% (24-48) Monocytes (%) (Auto) 5% (0-9) 7% (0-9) Eosinophils (%) (Auto) 2% (0-3) 3% (0-3) Basophils (%) (Auto) 1% (0-3) 1% (0-3) Neutrophils # (Auto) 9.9x10^3uL (1.8-7.7) 8.5x10^3uL (1.8-7.7) Lymphocytes # (Auto) 1.3x10^3/uL (1.0-4.8) 1.8x10^3/uL (1.0-4.8) Monocytes # (Auto) 0.6x10^3/uL (0.0-1.1) 0.8x10^3/uL (0.0-1.1) Eosinophils # (Auto) 0.2x10^3/uL (0.0-0.7) 0.3x10^3/uL (0.0-0.7) Basophils # (Auto) 0.1x10^3/uL (0.0-0.2) 0.1x10^3/uL (0.0-0.2) Sodium Level 144mmol/L (136-145) 143mmol/L (136-145) Potassium Level 3.0mmol/L (3.5-5.1) 2.8mmol/L (3.5-5.1) Chloride Level 107mmol/L (98-107) 103mmol/L (98-107) Carbon Dioxide Level 28mmol/L (21-32) 32mmol/L (21-32) Anion Gap 9 (6-14) 8 (6-14) Blood Urea Nitrogen 6mg/dL (7-20) 6mg/dL (7-20) Creatinine 0.9mg/dL (0.6-1.0) 0.8mg/dL (0.6-1.0) Estimated GFR (Cockcroft-Gault) 82.3 94.3 BUN/Creatinine Ratio 7 (6-20) Glucose Level 119mg/dL (70-99) 112mg/dL (70-99) Calcium Level 7.9mg/dL (8.5-10.1) 8.6mg/dL (8.5-10.1) Magnesium Level 1.3mg/dL (1.8-2.4) 2.0mg/dL (1.8-2.4) Total Bilirubin 1.1mg/dL (0.2-1.0) Aspartate Amino Transf (AST/SGOT) 47U/L (15-37) Alanine Aminotransferase (ALT/SGPT) 32U/L (14-59) Alkaline Phosphatase 155U/L (46-116) GU-Fwg-G-Type Natriuretic Peptide 1619pg/mL (0-124) Total Protein 7.2g/dL (6.4-8.2) Albumin 2.8g/dL (3.4-5.0) Albumin/Globulin Ratio 0.6 (1.0-1.7) Amylase Level 68U/L (25-115) Lipase 126U/L (73-393) Urine Collection Type U cath Urine Color Yellow Urine Clarity Clear Urine pH 6.5 Urine Specific [place] 1.015 Urine Protein >=300mg/dL (NEG-TRACE) Urine Glucose (UA) Negativemg/dL (NEG) Urine Ketones (Stick) Negativemg/dL (NEG) Urine Blood Trace (NEG) Urine Nitrite Negative (NEG) Urine Bilirubin Negative (NEG) Urine Urobilinogen Dipstick 1.0mg/dL (0.2 mg/dL) Urine Leukocyte Esterase Negative (NEG) Urine RBC 0/HPF (0-2) Urine WBC 1-4/HPF (0-4) Urine Transitional Epithelial Cells Occ/LPF Urine Amorphous Sediment Present/HPF Urine Bacteria 0/HPF (0-FEW) Urine Test Negative (NEG) Iron Level 20ug/dL (50-170) Ferritin 16ng/mL (8-252) Triglycerides Level 52mg/dL (0-150) Cholesterol Level 103mg/dL (0-200) LDL Cholesterol, Calculated 59mg/dL (0-100) VLDL Cholesterol, Calculated 10mg/dL (0-40) HDL Cholesterol 34mg/dL (40-60) Cholesterol/HDL Ratio 3.0 Vitamin B12 Level 413pg/mL (247-911) Serum Folate 12.41ng/ml (3.2-20.0) Thyroid Stimulating Hormone (TSH) 1.135uIU/mL (0.358-3.74) Medications Current Medications Albuterol Sulfate (Ventolin Neb Soln) 2.5 mg 1X ONCE NEB Last administered on 10/22/16 10:50; Start 10/22/16 at 10:45; Stop 10/22/16 at 10:46; Status DC Clonidine HCl (Catapres) 0.2 mg 1X ONCE PO Last administered on 10/22/16 10: 55; Start 10/22/16 at 10:45; Stop 10/22/16 at 10:46; Status DC Potassium Chloride (Klor-Con) 40 meq 1X ONCE PO Last administered on 14:08; Start 10/22/16 at 14:00; Stop 10/22/16 at 14:02; Status DC Losartan Potassium (Cozaar) 50 mg DAILY PO ; Start 10/23/16 at 09:00; Stop 10/23 at 09:00; Status DC Ondansetron HCl (Zofran) 4 mg PRN Q6HRS PRN IV NAUSEA/VOMITING; Start 10/22/16 at 14:45 Morphine Sulfate 1 mg PRN Q1HR PRN IV PAIN; Start 10/22/16 at 14:45 Acetaminophen/ Hydrocodone Bitart (Lortab 5/325) 1 tab PRN Q4HRS PRN PO MILD PAIN Last administered on 10/24/16 05:49; Start 10/22/16 at 14:45 Acetaminophen (Tylenol) 650 mg PRN Q6HRS PRN PO MILD PAIN / TEMP Last administered on 10/23/16 21:04; Start 10/22/16 at 14:45 Heparin Sodium (Porcine) 5,000 unit Q8HRS SQ Last administered on 10/24/16 05: 58; Start 10/22/16 at 22:00 Losartan Potassium (Cozaar) 100 mg DAILY PO Last administered on 10/24/16 09: 07; Start 10/22/16 at 16:00 Acetaminophen (Tylenol) 650 mg PRN Q6HRS PRN PO FEVER; Start 10/22/16 at 14:45 ; Stop 10/22/16 at 14:45; Status DC Ondansetron HCl (Zofran) 4 mg PRN Q6HRS PRN IV NAUSEA/VOMITING; Start 10/22/16 at 14:45; Stop 10/22/16 at 14:46; Status DC Hydralazine HCl (Apresoline) 10 mg PRN Q4HRS PRN IVP ELEVATED BP, SEE COMMENTS ; Start 10/22/16 at 14:45 Nystatin (Nystop) 1 drew BID TP Last administered on 10/22/16 21:19; Start at 21:00 Furosemide (Lasix) 40 mg DAILY IVP ; Start 10/22/16 at 15:00; Stop 10/22/16 at 15:00; Status DC Furosemide (Lasix) 40 mg BID92 IVP Last administered on 10/24/16 09:08; Start 10/22/16 at 14:00 Haloperidol Lactate (Haldol) 5 mg PRN Q4HRS PRN IVP ANXIETY / AGITATION; Start 10/22/16 at 14:45 Sulfur Hexafluoride Microspheres (Lumason) 25 mg STK-MED ONCE IVP ; Start at 14:47; Stop 10/22/16 at 14:48; Status DC Albuterol Sulfate (Ventolin Neb Soln) 2.5 mg PRN Q4HRS PRN NEB SHORTNESS OF BREATH; Start 10/22/16 at 15:00 Sulfur Hexafluoride Microspheres (Lumason) 25 mg 1X ONCE IVP Last administered on 10/22/16 15:28; Start 10/22/16 at 15:30; Stop 10/22/16 at 15:31 ; Status DC Potassium Chloride (Klor-Con) 40 meq 1X ONCE PO Last administered on 17:49; Start 10/22/16 at 17:00; Stop 10/22/16 at 17:01; Status DC Potassium Chloride (Klor-Con) 40 meq DAILY PO Last administered on 10/24/16 09 :06; Start 10/23/16 at 09:00 Furosemide 60 mg 60 mg 1X ONCE IVP Last administered on 10/22/16 17:49; Start 10/22/16 at 17:00; Stop 10/22/16 at 17:01; Status DC Magnesium Sulfate/ Dextrose 50 ml @ 25 mls/hr 1X ONCE IV Last administered on 10/22/16 17:50; Start 10/22/16 at 16:30; Stop 10/22/16 at 18:29; Status DC Magnesium Sulfate/ Dextrose (Magnesium Sulfate PREMIX 2GM) 50 ml @ 25 mls/hr 1X ONCE IV Last administered on 10/22/16 21:19; Start 10/22/16 at 18:30; Stop 10/22/16 at 20:29; Status DC Amlodipine Besylate 10 mg 10 mg DAILY PO Last administered on 10/24/16 09:07; Start 10/22/16 at 19:30 Potassium Chloride (KCl Premix 10meq) 100 ml @ 100 mls/hr Q1H IV Last administered on 10/23/16 15:00; Start 10/23/16 at 08:30; Stop 10/23/16 at 12:29 ; Status DC Potassium Chloride 40 meq 40 meq 1X ONCE PO Last administered on 10/23/16 13: 15; Start 10/23/16 at 12:00; Stop 10/23/16 at 12:01; Status DC Magnesium Sulfate/ Dextrose (Magnesium Sulfate PREMIX 4GM) 100 ml @ 25 mls/hr 1X ONCE IV Last administered on 10/23/16 21:05; Start 10/23/16 at 12:00; Stop 10/23/16 at 15:59; Status DC Vitamin B Complex (Folbic Tablet) 1 tab DAILY PO Last administered on 09:06; Start 10/23/16 at 13:00 Polysaccharide Iron Complex 150 mg 150 mg DAILY PO Last administered on 13:15; Start 10/23/16 at 13:00 Iron Sucrose/ Sodium Chloride (Venofer/Iv Sodium Chloride 0.9% 100ml) 110 ml @ 55 mls/hr 1X ONCE IV Last administered on 10/23/16 17:15; Start 10/23/16 at 13:00; Stop 10/23/16 at 14:59; Status DC Lisinopril (Prinivil) 10 mg DAILY PO Last administered on 10/24/16 09:06; Start 10/23/16 at 16:00 Ferrous Sulfate (Feosol) 325 mg DAILYWBKFT PO Last administered on 10/24/16 09 :05; Start 10/24/16 at 09:00 Active Scripts Active Losartan Potassium 50 Mg Tablet 50 Mg PO DAILY Proair Hfa Inhaler (Albuterol Sulfate) 8.5 Gm Hfa.aer.ad 2 Puff INH Q4-6HRS PRN Lotrisone Cream (Clotrimazole/Betamethasone Dip) 15 Gm Cream..g. 1 Drew TP BID Vitals/I & O Vital Sign - Last 24 Hours 10/23/16 10/23/16 10/23/16 10/23/16 09:33 09:33 09:58 11:00 Pulse 72 72 Resp 20 B/P 166/101 166/101 Pulse Ox 93 93 O2 Delivery Nasal Cannula Room Air O2 Flow Rate 2.0 10/23/16 10/23/16 10/23/16 10/23/16 11:24 15:02 17:19 19:00 Temp 97.6 98.1 96.3 97.6 98.1 96.3 Pulse 72 18 18 77 Resp 20 18 16 B/P 154/89 134/88 134/88 158/88 Pulse Ox 94 96 97 O2 Delivery Room Air Room Air Nasal Cannula O2 Flow Rate 2.0 10/23/16 10/23/16 10/24/16 10/24/16 20:00 22:58 00:51 01:51 Temp 97.7 97.7 Pulse 76 Resp 18 20 20 B/P 137/92 Pulse Ox 98 O2 Delivery Nasal Cannula Room Air Room Air O2 Flow Rate 2.0 10/24/16 10/24/16 10/24/16 10/24/16 02:43 05:49 09:06 09:07 Temp 97.3 97.3 Pulse 80 80 80 Resp 20 20 B/P 137/93 137/93 137/93 Pulse Ox 93 O2 Delivery Room Air Room Air 10/24/16 09:07 Pulse 80 B/P 137/93 Intake and Output 10/23/16 10/23/16 10/24/16 15:00 23:00 07:00 Intake Total 1400 ml Output Total 4500 ml 500 ml Balance -3100 ml -500 ml BECKI FAIRBANKS MD Oct 24, 2016 09:25
[2016-10-24] MEDS ORDERED: MAGNESIUM HYDROXIDE 2,400 MG/30 ML ORAL.SUSP. PO ONE (09:30)
[2016-10-24] MEDS ORDERED: MAGNESIUM HYDROXIDE 2,400 MG/30 ML ORAL.SUSP. PO PRN (09:30)
[2016-10-24 09:44] LABS: CALCIUM 8.5 mg/dL (8.5-10.1); CREATININE 0.8 mg/dL (0.6-1.0); GFR 94.3; POTASSIUM 3.2 mmol/L (3.5-5.1)
[2016-10-24] MEDS: DOCUSATE SODIUM 100 MG CAPSULE. PO SCH ×2 (10:00→21:00)
[2016-10-24] MEDS: POLYETHYLENE GLYCOL 3350 17 GM PACKET. PO SCH (10:00)
[2016-10-24 11:08] VITALS: BP 137/86
--- NOTE | 2016-10-24 12:05 | PDOC ---
CARDIO Progress Notes Date and Time Date of Service 10/24/16 Time of Evaluation 1050 Subjective Subjective: No Chest Pain, Other (mild SOA- legs less "swollen" - having to urinate frequently ) Comments: no acute events overnight. Vitals Vitals Vital Signs Date Time Temp Pulse Resp B/P Pulse Ox O2 Delivery O2 Flow Rate FiO2 10/24/16 11:08 97.4 85 18 137/86 95 Room Air 97.4 10/23/16 20:00 2.0 Weight Weight [ ] Input and Output Intake and Output Intake and Output 10/24/16 07:00 Intake Total 1400 ml Output Total 5000 ml Balance -3600 ml Intake Oral 1400 ml Output Urine Total 5000 ml Laboratory Labs Laboratory Tests Test 10/24/16 09:10 Sodium Level 141mmol/L (136-145) Potassium Level 3.2mmol/L (3.5-5.1) Chloride Level 100mmol/L (98-107) Carbon Dioxide Level 37mmol/L (21-32) Anion Gap 4 (6-14) Blood Urea Nitrogen 6mg/dL (7-20) Creatinine 0.8mg/dL (0.6-1.0) Estimated GFR (Cockcroft-Gault) 94.3 Glucose Level 152mg/dL (70-99) Calcium Level 8.5mg/dL (8.5-10.1) Physical Exam HEENT: Neck Supple W Full Motion Chest: Symmetric LUNGS: Other (diminished throughout ) Heart: S1S2, RRR, other (distant heart tones ) Abdomen: Other (firm, distended) Extremities: Other (anasarca, 2+ pitting bilateral LE jany) Neurology: alert, oriented, follow commands Assessment Assessment 1. Acute diastolic HF 2. Hypertensive heart disease 3. Dyspnea 4. Hypertension 5. Hypokalemia 8. Morbid obesity 10. Depression/bipolar/schizophrenia 11. Noncompliance Recommendations BP better controlled. Continue ARB Caution use of CCB with potential to worsen LE edema Echo with preserved LV function; study limited due to body habitus Continue diuresis with monitoring of labs replace K as warranted Supportive care from CV standpoint. Patient provided telephone number of mother, who is legal guardian, and gave permission to discuss her medical condition. Mother, Verna Mata provided that patient has refused all medications and mental health care for approximately 1 yr. Discussed importance of compliance with medical therapy given hypertension heart disease. Psych care also recommended. Mother states she will continue to provide support and encourage compliance. MAURISIO RAMIREZ APRN Oct 24, 2016 12:05
--- NOTE | 2016-10-24 14:40 | PDOC ---
Subjective: Subjective: Out for imaging. Family in room, warns history provided by patient is likely inaccurate. Objective: Objective: Reviewed other notes - h/o refusing medications, mental/health care. Reviewed nursing notes - pt refused stool softeners, Miralax, etc. Stool tests ordered. Vital Signs: Vital Signs Date Time Temp Pulse Resp B/P Pulse Ox O2 Delivery O2 Flow Rate FiO2 10/24/16 11:08 97.4 85 18 137/86 95 Room Air 97.4 10/24/16 08:10 2.0 Labs: Laboratory Tests Test 10/24/16 09:10 Sodium Level 141mmol/L Potassium Level 3.2mmol/L Chloride Level 100mmol/L Carbon Dioxide Level 37mmol/L Anion Gap 4 Blood Urea Nitrogen 6mg/dL Creatinine 0.8mg/dL Estimated GFR (Cockcroft-Gault) 94.3 Glucose Level 152mg/dL Calcium Level 8.5mg/dL Imaging: Pelv US PENDING PE: no exam A/P: WILLA -h/o this, was previously on iron -?metromenorrhagia -relates h/o GERD/belching, not interested in treatment, was previously on NSAIDs -no BMs here, had small loose stools prior to admission, reports normal colonoscopy in 2000 Heart failure, HTN, Anasarca -cardiology following Psych issues, non-compliance -- Await pelvic imaging. YARELIS ORR Oct 24, 2016 14:39
--- NOTE | 2016-10-24 14:49 | RAD ---
Pelvic ultrasound, 10/24/2016: History: Menorrhagia, anemia Transabdominal and transvaginal scans were obtained. The uterus is only partially visible on the transabdominal scans. It does not appear to be enlarged. Transvaginal scanning was then performed. Nabothian cysts are present in the cervical region. A portion of the central uterine echo complex is visualized and it measures 8 mm which is within normal limits for the premenopausal state. The superior portion of the uterus was not adequately visualized. The ovaries were not identified. No free fluid is evident in the pelvis. IMPRESSION: Limited exam as described above demonstrating no specific uterine abnormality.
[2016-10-24 14:55] VITALS: BP 126/74
[2016-10-24 19:00] VITALS: BP 143/87
[2016-10-24 23:03] VITALS: BP 145/87
[2016-10-25] MEDS: HYDROCODONE/APAP 5/325MG TABLET. PO PRN ×2 (03:22→08:43)
[2016-10-25 03:48] VITALS: BP 145/71
[2016-10-25] MEDS: HEPARIN PF for SUB-Q USE 5,000 UNIT/0.5 ML VIAL. SQ SCH (06:00)
[2016-10-25 07:00] VITALS: BP 139/74
[2016-10-25] MEDS: POLYETHYLENE GLYCOL 3350 17 GM PACKET. PO SCH (08:42)
[2016-10-25] MEDS ORDERED: FURO-68 PO (08:52)
[2016-10-25] MEDS ORDERED: LOSA100T6 PO (08:52)
[2016-10-25] MEDS ORDERED: POTA20TA82 PO (08:52)
[2016-10-25] MEDS ORDERED: FERR-26 PO (08:52)
[2016-10-25] MEDS ORDERED: AMLO10TA4 PO (08:53)
--- NOTE | 2016-10-25 08:57 | PDOC3 ---
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 Schizophrenia WILLA by documentation Hx myoma s/p myomectomy (yrs ago) Abdominal pain w/ diarrhea, resolved - \\NOW CONSTIPATED Candidiasis infection Malnutrition, moderate in morbid obesity, BMI 62 Medical Noncompliance Final Diagnosis Problems Medical Problems: (1) Abdominal pain Status: Acute (2) Anasarca Status: Acute (3) Marce infection Status: Acute (4) Dyspnea Status: Acute (5) Essential hypertension Status: Acute (6) Hypokalemia Status: Acute Brief Hospital Course Allergies Allergies Coded Allergies Type Severity Reaction Last Updated Verified No Known Drug Allergies 10/19/16 No Vital Signs Vital Signs Date Time Temp Pulse Resp B/P Pulse Ox O2 Delivery O2 Flow Rate FiO2 10/25/16 08:43 18 10/25/16 07:00 98.4 80 139/74 95 Nasal Cannula 2.0 98.4 Lab Results Laboratory Tests Test 10/24/16 09:10 Sodium Level 141mmol/L (136-145) Potassium Level 3.2mmol/L (3.5-5.1) Chloride Level 100mmol/L (98-107) Carbon Dioxide Level 37mmol/L (21-32) Anion Gap 4 (6-14) Blood Urea Nitrogen 6mg/dL (7-20) Creatinine 0.8mg/dL (0.6-1.0) Estimated GFR (Cockcroft-Gault) 94.3 Glucose Level 152mg/dL (70-99) Calcium Level 8.5mg/dL (8.5-10.1) Laboratory Tests Test 10/24/16 09:10 Sodium Level 141mmol/L (136-145) Potassium Level 3.2mmol/L (3.5-5.1) Chloride Level 100mmol/L (98-107) Carbon Dioxide Level 37mmol/L (21-32) Anion Gap 4 (6-14) Blood Urea Nitrogen 6mg/dL (7-20) Creatinine 0.8mg/dL (0.6-1.0) Estimated GFR (Cockcroft-Gault) 94.3 Glucose Level 152mg/dL (70-99) Calcium Level 8.5mg/dL (8.5-10.1) Brief Hospital Course Ms. Bain is a 45 old obese AA female comes in for ansaraca, "CHF", lower ext swelling <She has been IV diureses, Crea 0.9m, K 3.2, neg 3.5 Litres for the past 3 days and claims she still needs to stay in hosue and cant walk, BUt She went down to the cafeteria on day of dc, demanding more food,She lives in a motel and SW consulted and refused to got o homeless usp. She is anemia hgb7, microcytic, has been seen in GI in past and this admit, unable to provide stool specimen, US pelvis done bec she mentions myoma, but that was neg, hgb stable. 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
[2016-10-25] MEDS: NYSTATIN TOPICAL POWDER 15GM BOTTLE. TP SCH (09:00)
[2016-10-25] MEDS: DOCUSATE SODIUM 100 MG CAPSULE. PO SCH (09:00)
[2016-10-25] MEDS: FUROSEMIDE 40 MG/4 ML VIAL. IVP SCH (09:00)
[2016-10-25 11:00] VITALS: BP 151/83
[2016-10-25] MEDS: FERROUS SULFATE 325 MG TABLET. PO SCH (11:51)
[2016-10-25] MEDS: AMLODIPINE BESYLATE 10 MG TABLET. PO SCH (11:52)
[2016-10-25 11:53] VITALS: BP 151/83
[2016-10-25] MEDS: LOSARTAN POTASSIUM 50 MG TABLET. PO SCH (11:53)
[2016-10-25] MEDS: VITAMIN B12,B9,B6 COMPLEX 1 TABLET. PO SCH (11:54)
[2016-10-25] MEDS: IRON POLYSACCHARIDE COMPLEX 150 MG CAPSULE PO SCH (11:55)
[2016-10-25] MEDS: POTASSIUM CHLORIDE 20 MEQ TABLET.ER. PO SCH (11:55)
== END 2016-10-25 14:30 | disposition home or self-care (01) | DRG 292 ==
LOC: ER 09:57 → 5 SOUTH 13:59
PROVIDERS: ADMIT Internal Medicine; ATTEND Internal Medicine
DX: I50.41 Acute combined systolic (congestive) and diastolic (congestive) heart failure (principal); E44.0 Moderate protein-calorie malnutrition; Z68.44 Body mass index [BMI] 60.0-69.9, adult; I11.0 Hypertensive heart disease with heart failure; E66.01 Morbid (severe) obesity due to excess calories; B37.9 Candidiasis, unspecified; D50.9 Iron deficiency anemia, unspecified; E83.42 Hypomagnesemia; E87.6 Hypokalemia; F20.9 Schizophrenia, unspecified; I16.0 Hypertensive urgency; I27.81 Cor pulmonale (chronic); K21.9 Gastro-esophageal reflux disease without esophagitis; N92.0 Excessive and frequent menstruation with regular cycle; R09.02 Hypoxemia; F17.200 Nicotine dependence, unspecified, uncomplicated; Z91.19 Patient's noncompliance with other medical treatment and regimen; J20.9 Acute bronchitis, unspecified
CPT/HCPCS: 99285; C8924; 36415; 71010; 74176; 76856; 80048; 80053; 80061; 81001; 81025; 82150; 82607; 82728; 82746; 83540; 83690; 83735; 83880; 84443; 85027; 87045; 93005; 94250; 94640; 96374; J1756; J1940; J3475; J3480; J7060; Q9950

== ENCOUNTER 2017-03-16 07:56 | Emergency (ER) | payer MEDICARE ==
[~2017-03-16] VITALS: Ht 149.9 cm; Wt 129.7 kg
[~2017-03-16 07:56] MED LIST changes: +AMLO10TA4 PO; +FERR-26 PO; +FURO-68 PO; +LOSA100T6 PO; +POTA20TA82 PO
--- NOTE | 2017-03-16 08:21 | PHYS DOC ---
Past Medical History Past Medical History: Anemia, Bipolar, Depression, Hypertension, Schizophrenia Past Surgical History: Alcohol Use: Occasionally Drug Use: None Adult General Chief Complaint Chief Complaint: SHORTNESS OF BREATH HPI HPI Patient is a 46 year old female presents to the emergency department with a history of dyspnea, SOA. Patient states this has been going on since October. She also states she is having bilateral lower legs swelling. She states she noticed this the last few days. She denies fever, chills, nausea or vomiting. She does have a hx of HTN in which she does not take medication. Review of Systems Review of Systems Constitutional: Denies fever or chills [] Eyes: Denies change in visual acuity, redness, or eye pain [] HENT: Denies nasal congestion or sore throat [] Respiratory: Denies cough C/o shortness of breath [] Cardiovascular: No additional information not addressed in HPI [] GI: Denies abdominal pain, nausea, vomiting, bloody stools or diarrhea [] : Denies dysuria or hematuria [] Musculoskeletal: Denies back pain or joint pain. C/o bilateral lower leg swelling Integument: Denies rash or skin lesions [] Neurologic: Denies headache, focal weakness or sensory changes [] Endocrine: Denies polyuria or polydipsia [] Allergies Allergies Allergies Coded Allergies Type Severity Reaction Last Updated Verified No Known Drug Allergies 10/19/16 No Physical Exam Physical Exam Constitutional: Well developed, well nourished, no acute distress, non-toxic appearance. [] HENT: Normocephalic, atraumatic, bilateral external ears normal, oropharynx moist, no oral exudates, nose normal. [] Eyes: PERRLA, EOMI, conjunctiva normal, no discharge. [] Neck: Normal range of motion, no tenderness, supple, no stridor. [] Cardiovascular:Heart rate regular rhythm, no murmur [] Lungs & Thorax: Bilateral breath sounds clear to auscultation [] Abdomen: Bowel sounds hypoactive, soft, no tenderness, no masses, no pulsatile masses. [] Skin: Warm, dry, no erythema, no rash. [] Back: No tenderness Extremities: No tenderness, no cyanosis, no clubbing, ROM intact, bilateral lower leg swelling, peripheral pulse 2+ cap refill brick < 2 seconds. Neurologic: Alert and oriented X 3, normal motor function, normal sensory function, no focal deficits noted. [] Psychologic: Affect normal, judgement normal, mood normal. [] Current Patient Data Vital Signs Vital Signs Date Time Temp Pulse Resp B/P (MAP) Pulse Ox O2 Delivery O2 Flow Rate FiO2 03/16/17 08:02 97.7 103 16 196/94 (128) 97 Room Air 97.7 Lab Values Laboratory Tests Test 03/16/17 08:15 03/16/17 08:20 Urine Collection Type Unknown Urine Color Yellow Urine Clarity Clear Urine pH 6.0 Urine Specific [place] 1.020 Urine Protein Negative mg/dL (NEG-TRACE) Urine Glucose (UA) Negative mg/dL (NEG) Urine Ketones (Stick) Negative mg/dL (NEG) Urine Blood Negative (NEG) Urine Nitrite Negative (NEG) Urine Bilirubin Negative (NEG) Urine Urobilinogen Dipstick 0.2 mg/dL (0.2 mg/dL) Urine Leukocyte Esterase Negative (NEG) Urine RBC 0 /HPF (0-2) Urine WBC 0 /HPF (0-4) Urine Squamous Epithelial Cells Few /LPF Urine Bacteria 0 /HPF (0-FEW) Urine Mucus Slight /LPF White Blood Count 13.7 x10^3/uL (4.0-11.0) H Red Blood Count 5.09 x10^6/uL (3.50-5.40) Hemoglobin 9.6 g/dL (12.0-15.5) L Hematocrit 31.6 % (36.0-47.0) L Mean Corpuscular Volume 62 fL (79-100) L Mean Corpuscular Hemoglobin 19 pg (25-35) L Mean Corpuscular Hemoglobin Concent 30 g/dL (31-37) L Red Cell Distribution Width 15.8 % (11.5-14.5) H Platelet Count 319 x10^3/uL (140-400) Neutrophils (%) (Auto) 73 % (31-73) Lymphocytes (%) (Auto) 18 % (24-48) L Monocytes (%) (Auto) 5 % (0-9) Eosinophils (%) (Auto) 3 % (0-3) Basophils (%) (Auto) 1 % (0-3) Neutrophils # (Auto) 10.0 x10^3uL (1.8-7.7) H Lymphocytes # (Auto) 2.4 x10^3/uL (1.0-4.8) Monocytes # (Auto) 0.7 x10^3/uL (0.0-1.1) Eosinophils # (Auto) 0.4 x10^3/uL (0.0-0.7) Basophils # (Auto) 0.1 x10^3/uL (0.0-0.2) Platelet Estimate Pending Sodium Level 138 mmol/L (136-145) Potassium Level 3.9 mmol/L (3.5-5.1) Chloride Level 103 mmol/L (98-107) Carbon Dioxide Level 25 mmol/L (21-32) Anion Gap 10 (6-14) Blood Urea Nitrogen 10 mg/dL (7-20) Creatinine 0.9 mg/dL (0.6-1.0) Estimated GFR (Cockcroft-Gault) 81.9 BUN/Creatinine Ratio 11 (6-20) Glucose Level 109 mg/dL (70-99) H Calcium Level 8.6 mg/dL (8.5-10.1) Total Bilirubin 0.2 mg/dL (0.2-1.0) Aspartate Amino Transferase (AST) 18 U/L (15-37) Alanine Aminotransferase (ALT) 23 U/L (14-59) Alkaline Phosphatase 149 U/L (46-116) H MD-Sva-S-Type Natriuretic Peptide 23 pg/mL (0-124) Total Protein 8.0 g/dL (6.4-8.2) Albumin 3.0 g/dL (3.4-5.0) L Albumin/Globulin Ratio 0.6 (1.0-1.7) L Laboratory Tests 03/16/17 08:20 Laboratory Tests 03/16/17 08:20 EKG EKG EKG completed at 0810 with HR 91, SR noted no STEMI oer Dr Galindo[] Radiology/Procedures Radiology/Procedures [][facility] [address] [place] [address] IMAGING REPORT Signed PATIENT: BECKI WHEELER ACCOUNT: [id number] : 1970 LOCATION: ER AGE: 46 SEX: F EXAM STATUS: PRE ER ORD. PHYSICIAN: LUIS RICHEY APRN REASON: SOA, dyspnea PROCEDURE: CHEST PA & LATERAL Indication shortness of air. Hypertension. PA and lateral views of the chest were obtained. Comparison is made to an examination 10/22/2016. There is unchanged mild cardiomegaly. There is no congestive heart failure. There is no focal infiltrate significant pleural fluid collection or pneumothorax. Visualized bony structures appear grossly intact. IMPRESSION: No acute or focal process seen in the chest. Mild cardiomegaly appearing similar DICTATED and SIGNED BY: MARY ANAND MD DATE: 03/16/17 0836 CC: SHAHANA RAINEY MD; LUIS RICHEY APRN ~ Course & Med Decision Making Course & Med Decision Making Pertinent Labs and Imaging studies reviewed. (See chart for details) Patient with no SOA or dyspnea noted at this time. Patient with no complaints at this time. CBC, CMP, BNP, EKG and CXR normal. Patient jeffery BP 174/74 at this time. Patient will be discharged home in stable condition with recommendations for prednisone. Patient was recommended to followup with PCP in 3-5 days. Signs and symptoms to return to the emergency department has been provided. Patient agrees with discharge instructions, treatment regimen and followup recommendations. All questions and concerns have been answered at patients bedside. [] Dragon Disclaimer Dragon Disclaimer This electronic medical record was generated, in whole or in part, using a voice recognition dictation system. Departure Departure Impression: Primary Impression: Dyspnea Disposition: 01 HOME, SELF-CARE Condition: IMPROVED Referrals: SHAHANA RAINEY MD (PCP) Patient Instructions: Shortness of Breath, [id number] Additional Instructions: Activity as tolerated Medication as prescribed Monitor your Blood pressure at home Followup with your primary care provider in 3-5 days Return to emergency department as needed for signs and symptoms that become worse. Scripts Prednisone (PREDNISONE) 20 Mg Tablet 40 MG PO DAILY for 7 Days, #14 TAB Prov: LUIS RICHEY APRN 03/16/17 Problem Qualifiers Primary Impression: Dyspnea Dyspnea type: unspecified Qualified Codes: R06.00 - Dyspnea, unspecified LUIS RICHEY APRN Mar 16, 2017 08:21
[2017-03-16 08:31] LABS: BASO # 0.1 x10^3/uL (0.0-0.2); BASO % 1 % (0-3); EOS % 3 % (0-3); HEMATOCRIT 31.6 % (36.0-47.0); HEMOGLOBIN 9.6 g/dL (12.0-15.5); LYMPH # 2.4 x10^3/uL (1.0-4.8); LYMPH % 18 % (24-48); MEAN CORPUSCULAR HEMOGLOBIN 19 pg (25-35); MEAN CORPUSCULAR HGB CONC 30 g/dL (31-37); MEAN CORPUSCULAR VOLUME 62 fL (79-100); MONO % 5 % (0-9); NEUT % 73 % (31-73); PLATELET COUNT 319 x10^3/uL (140-400); RED BLOOD COUNT 5.09 x10^6/uL (3.50-5.40); RED CELL DISTRIBUTION WIDTH 15.8 % (11.5-14.5); WHITE BLOOD COUNT 13.7 x10^3/uL (4.0-11.0)
[2017-03-16 08:32] LABS: BILIRUBIN,URINE NEGATIVE (NEG); GLUCOSE,URINE NEGATIVE (NEG); NITRITE,URINE NEGATIVE (NEG); PROTEIN,URINE NEGATIVE (NEG-TRACE); UROBILINOGEN,URINE 0.2 mg/dL (0.2 mg/dL)
[2017-03-16 08:36] LABS: BACTERIA,URINE 0 /HPF (0-FEW); RBC,URINE 0 /HPF (0-2); SQUAMOUS EPITHELIAL CELL,UR FEW /LPF; WBC,URINE 0 /HPF (0-4)
--- NOTE | 2017-03-16 08:40 | RAD ---
Indication shortness of air. Hypertension. PA and lateral views of the chest were obtained. Comparison is made to an examination 10/22/2016. There is unchanged mild cardiomegaly. There is no congestive heart failure. There is no focal infiltrate significant pleural fluid collection or pneumothorax. Visualized bony structures appear grossly intact. IMPRESSION: No acute or focal process seen in the chest. Mild cardiomegaly appearing similar
[2017-03-16 08:45] LABS: CALCIUM 8.6 mg/dL (8.5-10.1); CREATININE 0.9 mg/dL (0.6-1.0); GFR 81.9; POTASSIUM 3.9 mmol/L (3.5-5.1)
[2017-03-16 08:51] LABS: ALBUMIN/GLOBULIN RATIO 0.6 (1.0-1.7); TOTAL BILIRUBIN 0.2 mg/dL (0.2-1.0)
--- NOTE | 2017-03-16 09:26 | EKG ---
[facility] [address] [place] [address] Test Date: 2017-03-16 Test Time: 08:10:05 Pat Name: BECKI WHEELER Department: Room: Gender: F Carbonizer: : 1970 Requested By: LUIS RICHEY Order Number: [id number] Reading MD: Wan Hernandez Measurements Intervals [place] Rate: 91 P: 38 UT: 192 QRS: -28 QRSD: 86 T: 33 QT: 360 QTc: 444 Interpretive Statements SINUS RHYTHM LAFB Electronically Signed On 03-16-2017 10:18:15 CDT by Wan Hernandez
[2017-03-16] MEDS ORDERED: PRED20TA PO (09:31)
[2017-03-16 09:58] VITALS: BP 144/69
[2017-03-16 12:28] LABS: PLT ESTIMATE ADEQUATE (ADEQUATE)
[2017-03-16 12:29] LABS: ANISOCYTOSIS PRESENT; HYPOCHROMIA MOD; POIKILOCYTOSIS MARKED
== END 2017-03-16 09:59 | disposition home or self-care (01) ==
LOC: ER 09:08
DX: R06.00 Dyspnea, unspecified (principal); R06.02 Shortness of breath; M79.89 Other specified soft tissue disorders; F20.9 Schizophrenia, unspecified; I10 Essential (primary) hypertension; F32.9 Major depressive disorder, single episode, unspecified; F31.9 Bipolar disorder, unspecified
CPT/HCPCS: 36415; 71020; 80053; 81001; 83880; 85025; 93005; 99285-25

== ENCOUNTER 2017-04-29 06:53 | Emergency (ER) | payer MEDICARE ==
[~2017-04-29] VITALS: Ht 149.9 cm; Wt 130.6 kg
[~2017-04-29 06:53] MED LIST changes: +PRED20TA PO
[2017-04-29 07:20] LABS: BASO # 0.2 x10^3/uL (0.0-0.2); BASO % 1 % (0-3); EOS % 3 % (0-3); HEMATOCRIT 32.3 % (36.0-47.0); HEMOGLOBIN 9.9 g/dL (12.0-15.5); LYMPH # 2.3 x10^3/uL (1.0-4.8); LYMPH % 12 % (24-48); MEAN CORPUSCULAR HEMOGLOBIN 19 pg (25-35); MEAN CORPUSCULAR HGB CONC 31 g/dL (31-37); MEAN CORPUSCULAR VOLUME 61 fL (79-100); MONO % 6 % (0-9); NEUT % 79 % (31-73); PLATELET COUNT 341 x10^3/uL (140-400); RED BLOOD COUNT 5.26 x10^6/uL (3.50-5.40); RED CELL DISTRIBUTION WIDTH 17.3 % (11.5-14.5); WHITE BLOOD COUNT 19.5 x10^3/uL (4.0-11.0)
[2017-04-29 07:23] VITALS: BP 163/84
[2017-04-29 07:26] LABS: CALCIUM 9.1 mg/dL (8.5-10.1); CREATININE 0.7 mg/dL (0.6-1.0); GFR 109.5; POTASSIUM 3.8 mmol/L (3.5-5.1)
[2017-04-29 07:27] LABS: BARBITURATES NEG (NEG); BENZODIAZEPINES NEG (NEG); CANNABINOIDS NEG (NEG); COCAINE NEG (NEG); METHADONE NEG (NEG); OPIATES NEG (NEG); PHENCYCLIDINE NEG (NEG)
[2017-04-29 07:31] LABS: ETHANOL < 10 mg/dL (0-10)
[2017-04-29 07:35] LABS: BILIRUBIN,URINE NEGATIVE (NEG); GLUCOSE,URINE NEGATIVE (NEG); NITRITE,URINE NEGATIVE (NEG); PROTEIN,URINE NEGATIVE (NEG-TRACE); UROBILINOGEN,URINE 0.2 mg/dL (0.2 mg/dL)
--- NOTE | 2017-04-29 07:37 | PHYS DOC ---
Past Medical History Past Medical History: Anemia, Bipolar, Depression, Hypertension, Schizophrenia Past Surgical History: Alcohol Use: Occasionally Drug Use: None Adult General Chief Complaint Chief Complaint: PSYCH EVALUATION HPI HPI Patient is a 46 year old female who presents requesting a lethal injection or to be cremated. Pt with h/o schizophrenia and thought she could come here for these services. When she was told this was illegal, she state "okay". She denies SI/HI. She missed her abilify injection on Thursday because her appointment was moved to tomorrow. She think that her mom is taking her money and that people "are being mean to me". 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 She did not do or take anything to hurt herself. Review of Systems Review of Systems Constitutional: Denies fever or chills [] Eyes: Denies change in visual acuity, redness, or eye pain [] HENT: Denies nasal congestion or sore throat [] Respiratory: Denies cough or shortness of breath [] Cardiovascular: Denies chest pain GI: Denies abdominal pain, nausea, vomiting : Denies dysuria or hematuria [] Musculoskeletal: Denies back pain or joint pain [] Integument: Denies rash or skin lesions [] Neurologic: Denies headache, focal weakness or sensory changes [] Allergies Allergies Allergies Coded Allergies Type Severity Reaction Last Updated Verified No Known Drug Allergies 10/19/16 No Physical Exam Physical Exam Constitutional: Well developed, well nourished, no acute distress, non-toxic appearance. [] HENT: Normocephalic, atraumatic, bilateral external ears normal, oropharynx moist, no oral exudates, nose normal. [] Eyes: PERRLA, EOMI, conjunctiva normal, no discharge. [] Neck: Normal range of motion, no tenderness, supple, no stridor. [] Cardiovascular:Heart rate regular with regular rhythm, no murmur [] Lungs & Thorax: Bilateral breath sounds clear to auscultation [] Abdomen: Bowel sounds normal, soft, no tenderness, no masses, no pulsatile masses. [] Skin: Warm, dry, no erythema, no rash. [] Back: No tenderness, no CVA tenderness. [] Extremities: No tenderness, no cyanosis, no clubbing, ROM intact, no edema. [] Neurologic: Alert and oriented X 3, normal motor function, normal sensory function, no focal deficits noted. [] Psychologic: pleasant, calm, tangetial thoughts, Denies SI/HI Current Patient Data Vital Signs Vital Signs Date Time Temp Pulse Resp B/P (MAP) Pulse Ox O2 Delivery O2 Flow Rate FiO2 04/29/17 07:23 97.7 100 20 163/84 (110) 97 97.7 Lab Values Laboratory Tests Test 04/29/17 07:00 04/29/17 07:07 04/29/17 07:15 Urine Collection Type Unknown Urine Color Yellow Urine Clarity Clear Urine pH 6.0 Urine Specific [place] 1.025 Urine Protein Negative mg/dL (NEG-TRACE) Urine Glucose (UA) Negative mg/dL (NEG) Urine Ketones (Stick) Negative mg/dL (NEG) Urine Blood Negative (NEG) Urine Nitrite Negative (NEG) Urine Bilirubin Negative (NEG) Urine Urobilinogen Dipstick 0.2 mg/dL (0.2 mg/dL) Urine Leukocyte Esterase Trace (NEG) Urine RBC Occ /HPF (0-2) Urine WBC 1-4 /HPF (0-4) Urine Squamous Epithelial Cells Many /LPF Urine Bacteria Few /HPF (0-FEW) Urine Mucus Marked /LPF Urine Opiates Screen Neg (NEG) Urine Methadone Screen Neg (NEG) Urine Barbiturates Neg (NEG) Urine Phencyclidine Screen Neg (NEG) Urine Amphetamine/Methamphetamine Neg (NEG) Urine Benzodiazepines Screen Neg (NEG) Urine Cocaine Screen Neg (NEG) Urine Cannabinoids Screen Neg (NEG) Urine Ethyl Alcohol Neg (NEG) POC Urine HCG, Qualitative Hcg negative (Negative) White Blood Count 19.5 x10^3/uL (4.0-11.0) H Red Blood Count 5.26 x10^6/uL (3.50-5.40) Hemoglobin 9.9 g/dL (12.0-15.5) L Hematocrit 32.3 % (36.0-47.0) L Mean Corpuscular Volume 61 fL (79-100) L Mean Corpuscular Hemoglobin 19 pg (25-35) L Mean Corpuscular Hemoglobin Concent 31 g/dL (31-37) Red Cell Distribution Width 17.3 % (11.5-14.5) H Platelet Count 341 x10^3/uL (140-400) Neutrophils (%) (Auto) 79 % (31-73) H Lymphocytes (%) (Auto) 12 % (24-48) L Monocytes (%) (Auto) 6 % (0-9) Eosinophils (%) (Auto) 3 % (0-3) Basophils (%) (Auto) 1 % (0-3) Neutrophils # (Auto) 15.3 x10^3uL (1.8-7.7) H Lymphocytes # (Auto) 2.3 x10^3/uL (1.0-4.8) Monocytes # (Auto) 1.1 x10^3/uL (0.0-1.1) Eosinophils # (Auto) 0.5 x10^3/uL (0.0-0.7) Basophils # (Auto) 0.2 x10^3/uL (0.0-0.2) Platelet Estimate Pending Polychromasia Slight Hypochromasia Mod Poikilocytosis Slight Basophilic Stippling Present Anisocytosis Slight Microcytosis Mod Macrocytosis Slight Target Cells Occ Sodium Level 135 mmol/L (136-145) L Potassium Level 3.8 mmol/L (3.5-5.1) Chloride Level 99 mmol/L (98-107) Carbon Dioxide Level 29 mmol/L (21-32) Anion Gap 7 (6-14) Blood Urea Nitrogen 8 mg/dL (7-20) Creatinine 0.7 mg/dL (0.6-1.0) Estimated GFR (Cockcroft-Gault) 109.5 Glucose Level 121 mg/dL (70-99) H Calcium Level 9.1 mg/dL (8.5-10.1) Salicylates Level < 2.8 mg/dL (2.8-20.0) L Salicylate Last Dose Date Unknown Salicylate Last Dose Time Unknown Acetaminophen Level < 2.0 mcg/ml (10-30) L Acetaminophen Last Dose Date Unknown Acetaminophen Last Dose Time Unknown Ethyl Alcohol Level < 10 mg/dL (0-10) Laboratory Tests 04/29/17 07:15 Laboratory Tests 04/29/17 07:15 EKG EKG [] Radiology/Procedures Radiology/Procedures [] Course & Med Decision Making Course & Med Decision Making Pertinent Labs and Imaging studies reviewed. (See chart for details) labs performed, pt assessed by Vitaliy, no clear threat to herself, discussed with high risk case manager. All agreed pt can dc and f/u tomorrow. Pt agreeable. Rowan Disclaimer Dragon Disclaimer This electronic medical record was generated, in whole or in part, using a voice recognition dictation system. Departure Departure Impression: Primary Impression: Schizophrenia Disposition: 01 HOME, SELF-CARE Condition: IMPROVED Referrals: SHAHANA RAINEY MD (PCP) SKYLA HERMOSILLO MD Apr 29, 2017 07:37
[2017-04-29 07:50] LABS: BACTERIA,URINE FEW /HPF (0-FEW); RBC,URINE OCC /HPF (0-2); SQUAMOUS EPITHELIAL CELL,UR MANY /LPF
[2017-04-29 09:41] LABS: HYPOCHROMIA MOD; POIKILOCYTOSIS SLIGHT; POLYCHROMASIA SLIGHT
[2017-04-29 09:42] LABS: ANISOCYTOSIS SLIGHT; MICROCYTOSIS MOD; TARGET CELLS OCC
[2017-04-29 12:53] LABS: PLT ESTIMATE ADEQUATE (ADEQUATE)
== END 2017-04-29 09:25 | disposition home or self-care (01) ==
LOC: ER 06:53
DX: F20.9 Schizophrenia, unspecified (principal); I10 Essential (primary) hypertension; F31.9 Bipolar disorder, unspecified; Z86.2 Personal history of diseases of the blood and blood-forming organs and certain disorders involving the immune mechanism
CPT/HCPCS: 36415; 80048; 80307; 80329; 81001; 81025; 85025; 87086; 99284; G0480; G0479